=== PATIENT | male | born 1965 | race Caucasian/White ===

== ENCOUNTER 2019-11-23 13:43 | Inpatient (IN) | payer BC, OTHER ==
[2019-11-23 13:51] VITALS: BMI 34.2
--- NOTE | 2019-11-23 14:25 | PDOC ---
History of Present Illness - General Chief Complaint: Shortness of Breath Stated Complaint: SENT BY PCP/SOB Time Seen by Provider: 11/23/19 14:07 History Source: Patient Exam Limitations: No Limitations - History of Present Illness Initial Comments: HPI: 54 y/o male presenting to [facility] ER complaining of bilateral lower extremity swelling x10 days with worsening SOB and general malaise x4 days. Reports orthopnea and paroxysmal nocturnal dyspnea. Pt has no history of similar symptoms. Denies chest pain, fevers, chills, or productive cough. Denies any known medical problems, but has not been evaluated by a physician in several years. Initially presented to [facility] today, who referred the pt to the ED for further evaluation. 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 Denies prescription medications. Surgical Hx: - Appendectomy Review of Systems: In addition to that documented in the HPI above, the additional ROS was obtained : Constitutional- Denies fevers or chills Head- Denies vision changes ENMT- Denies sore throat CV- Denies chest pain Resp- Per HPI GI- Denies abdominal pain, vomiting or diarrhea - Denies painful urination MSK- Denies recent trauma Skin- Denies new rashes Neuro- Denies new numbness or tingling Endocrine- Denies polyuria Heme- Denies bleeding or bruising Physical Examination: Vital signs and nursing notes reviewed. Constitutional- Well-developed, well-nourished adult male in no acute distress or obvious discomfort. Found sitting upright on edge of hospital bed. Answered all questions appropriately and completely. Head- Normocephalic. No obvious external signs of trauma. Neck- Supple, trachea is midline. No JVD. Cardiovascular / Chest- Tachycardia w/ irregularly irregular rate and rhythm. No murmur, rubs, clicks, or gallops. Peripheral pulses- radial pulses full. 4+ pretibial edema to knee bilaterally. Respiratory- Breathing unlabored. Speaking in multi-word responses without pausing for breath. Equal chest rise and fall. Fine rales in bilateral bases, worse in right. No stridor, no wheezing, no rhonchi. Gastrointestinal- abdomen is soft, non-tender, non-distended. Post surgical scar to RLQ. Neuro- Alert and oriented x4. Moving all four extremities spontaneously. No facial asymmetry. No slurred speech. Skin- Warm, dry, and intact. Psych- Affect- appropriate. Mood- normal. Speech was non-labored, non- pressured. MDM: 54 y/o male presenting with 10 days of worsening pretibial edema, orthopnea, and exertional dyspnea. No cardiac history. Afebrile. Vitals remarkable for tachycardia without hypotension. Normoxic on room air. Physical exam as described above. EKG revealed rapid a-fib with RVR. Ordered diltiazem push with subsequent improvement in HR. CXR revealed trace effusion with enlarged cardiac silhouette. POCUS Echo revealed an estimated EF of 30-40%. Troponin not elevated. Suspect possible cardiomegaly. Will admit the pt for further cardiac workup. 23 Nov 2019 17:23 PM Telephone discussion with Dr. Montez. Verbally appraised of the pts HPI, ED course, and current plan of management. Requested the pt receive Carvidalol, Lasix, and Apixaban. Can use PRN Lopressor as needed for rate control. In person discussion with Dr. Garrett. Verbally appraised of the pts HPI, ED course, and current plan of management. Will admit the pt to telemetry. Kali Payton M.D., PGY2 Emergency Medicine Resident Past History - Past Medical History Allergies/Adverse Reactions: Allergies Allergy/AdvReac Type Severity Reaction Status Date / Time No Known Allergies Allergy Verified 11/23/19 13:51 COPD: No - Surgical History Abdominal Surgery: Yes - Psycho Social/Smoking Cessation Hx Smoking History: Current every day smoker Number of Cigarettes Smoked Daily: 20 Information on smoking cessation initiated: No *Physical Exam - Vital Signs Last Vital Signs Temp Pulse Resp BP Pulse Ox 98 F 74 18 136/92 98 11/23/19 13:49 11/23/19 13:49 11/23/19 13:49 11/23/19 13:49 11/23/19 13:49 Vital Signs - Vital Signs #1 Time: 14:24 Blood Pressure: 130/100 BP Location: Right Arm Blood Pressure Position: Sitting Pulse Rate: 120 Respiratory Rate: 24 O2 Sat by Pulse Oximetry (%): 96 Oxygen Delivery Method: Room Air ED Treatment Course - LABORATORY CBC & Chemistry Diagram: 11/23/19 14:44 11/23/19 14:44 - RADIOLOGY Radiology Studies Ordered: Category Date Time Status CHEST PA & LAT [RAD] Stat Radiology 11/23/19 14:21 Ordered Discharge - Discharge Information Problems reviewed: Yes Clinical Impression/Diagnosis: SOB (shortness of breath), New onset of congestive heart failure, Elevated brain natriuretic peptide (BNP) level, Orthopnea Edema Qualifiers: Edema type: localized Qualified Code(s): R60.0 - Localized edema Condition: Stable - Admission Yes - Follow up/Referral - Patient Discharge Instructions - Post Discharge Activity
[2019-11-23 15:10] LABS: BASO % 0.9 % (0-2.0); EOS % 1.4 % (0-4.5); HEMATOCRIT 48.2 % (35.4-49); HEMOGLOBIN 16.4 GM/dL (11.7-16.9); MCH 33.9 pg (25.7-33.7); MCHC 33.9 g/dl (32.0-35.9); MEAN CELL VOLUME 99.8 fl (80-96); MEAN PLT VOLUME 8.6 fl (7.5-11.1); MONO % 7.1 % (3.8-10.2); NEUT % 71.6 % (42.8-82.8); PLATELET COUNT 197 K/MM3 (134-434); RBC 4.83 M/mm3 (4.00-5.60); RDW 14.1 % (11.9-15.9); WHITE BLOOD COUNT 7.2 K/mm3 (4.0-10.0)
[2019-11-23 15:25] LABS: INR 1.28 (0.83-1.09); PROTHROMBIN TIME (PATIENT) 15.2 SEC (9.7-13.0)
[2019-11-23 15:28] LABS: ACTIVATED PTT 35.7 SECONDS (25.2-36.5)
--- NOTE | 2019-11-23 15:38 | PDOC ---
Documentation entered by Angela Ruiz SCRIBE, acting as scribe for Edna Phillips MD. Edna Phillips MD: This documentation has been prepared by the Sara trivedi Adrianna, SCRIBE, under my direction and personally reviewed by me in its entirety. I confirm that the documentation accurately reflects all work, treatment, procedures, and medical decision making performed by me. Attending Attestation - Resident Resident Name: Kali Payton - ED Attending Attestation I have performed the following: I have examined & evaluated the patient, The case was reviewed & discussed with the resident, I agree w/resident's findings & plan, Exceptions are as noted - HPI HPI: The patient is a 54 year old male, with no significant PMH, who presents to the ED for evaluation of SOB and bilateral lower extremity edema for 10 days. Patient complains of progressively worsening SOB, with dyspnea on exertion, orthopnea, and bilateral LE edema. He additionally complains of malaise for the past 4 days. Patient was seen at Urgent Care earlier today, and was advised to come to the ED for further evaluation. Allergies: NKA, NKDA Surgical History: Appendectomy Social History: Daily EtOH consumption. Daily tobacco use. Denies illicit drug use PCP: None - Physicial Exam PE: 11/23/19 15:22 GENERAL: The patient is in no acute distress. ENT: Ears normal, nares patent, oropharynx clear without exudates. Moist mucous membranes. NECK: Normal range of motion, supple, (+) JVD LUNGS: Breath sounds equal, clear to auscultation bilaterally. No wheezes, and no crackles. HEART: Irregularly irregular, S1 and S2 without murmur, rub or gallop. ABDOMEN: Soft, nontender, normoactive bowel sounds. EXTREMITIES: 3+ pitting edema NEUROLOGICAL: Cranial nerves II through XII grossly intact. Normal speech. No focal neurological deficits. SKIN: Warm, Dry, normal turgor, no rashes or lesions noted. - Medical Decision Making 11/23/19 15:22 54-year-old male with no significant past medical history because he does not follow-up with a primary care physician presenting to the emergency department with progressively worsening shortness of breath, dyspnea on exertion, orthopnea. Differential diagnosis includes but is not limited to: Congestive heart failure secondary to new onset A. fib, ACS, hyperthyroidism, new renal failure/fluid overloading We will do: Labs, EKG chest x-ray Anticipate admission EKG reveals: Atrial fibrillation, rate of 121 bpm, axis is normal, intervals are normal, no ST elevation or depression 11/23/19 15:38 Laboratory Tests 11/23/19 11/23/19 14:44 14:44 WBC 7.2 Hgb 16.4 Hct 48.2 Plt Count 197 INR 1.28 H 11/23/19 17:33 Laboratory Tests 11/23/19 11/23/19 11/23/19 14:44 14:44 14:44 WBC 7.2 Hgb 16.4 Hct 48.2 Plt Count 197 BUN 10.3 Creatinine 0.8 Troponin I 0.04 B-Natriuretic Peptide TSH 4.46 H Thyroxine (T4) 11.3 11/23/19 14:44 WBC Hgb Hct Plt Count BUN Creatinine Troponin I B-Natriuretic Peptide 7611.8 H TSH Thyroxine (T4) Lasix and rate control Admit to Dr Garrett Consult to Dr Trejo ED Treatment Course - LABORATORY CBC & Chemistry Diagram: 11/23/19 14:44 11/23/19 14:44 - ADDITIONAL ORDERS Additional order review: Laboratory Results 11/23/19 11/23/19 11/23/19 14:44 14:44 14:44 PT with INR 15.20 H INR 1.28 H PTT (Actin FS) 35.7 Sodium 132 L Potassium 4.2 Chloride 99 Carbon Dioxide 23 Anion Gap 11 BUN 10.3 Creatinine 0.8 Est GFR (CKD-EPI)AfAm 117.38 Est GFR (CKD-EPI)NonAf 101.27 Random Glucose 87 Calcium 9.4 Phosphorus 3.5 Magnesium 2.1 Total Bilirubin 2.8 H AST 69 H ALT 57 Alkaline Phosphatase 68 Creatine Kinase Troponin I B-Natriuretic Peptide 7611.8 H Total Protein 7.6 Albumin 3.7 TSH 4.46 H Thyroxine (T4) 11.3 11/23/19 14:44 PT with INR INR PTT (Actin FS) Sodium Potassium Chloride Carbon Dioxide Anion Gap BUN Creatinine Est GFR (CKD-EPI)AfAm Est GFR (CKD-EPI)NonAf Random Glucose Calcium Phosphorus Magnesium Total Bilirubin AST ALT Alkaline Phosphatase Creatine Kinase 61 Troponin I 0.04 B-Natriuretic Peptide Total Protein Albumin TSH Thyroxine (T4) 11/23/19 14:44 RBC 4.83 MCV 99.8 H MCHC 33.9 RDW 14.1 MPV 8.6 Neutrophils % 71.6 Lymphocytes % 19.0 Monocytes % 7.1 Eosinophils % 1.4 Basophils % 0.9 - RADIOLOGY Radiograph Interpretation: EXAM#: TYPE/EXAM: RESULT: [id number] RAD/CHEST PA LAT Chest: Shortness of breath. 2 views of the chest reveal a large heart, unfolded aorta and congestive changes. There may be some atelectasis at the right base. The bones and soft tissues are intact. Reported By: Albin Sabillon MD 11/23/19 16:04
[2019-11-23 15:53] LABS: MAGNESIUM 2.1 mg/dL (1.8-2.4); N-TERMINAL BNP 7611.8 pg/ml (5-125); PHOSPHOROUS 3.5 mg/dL (2.5-4.9)
[2019-11-23 15:57] LABS: ALBUMIN 3.7 g/dl (3.4-5.0); BILIRUBIN,TOTAL 2.8 mg/dL (0.2-1); BLOOD UREA NITROGEN 10.3 mg/dL (7-18); CALCIUM 9.4 mg/dL (8.5-10.1); CREATININE 0.8 mg/dL (0.55-1.3); POTASSIUM 4.2 mmol/L (3.5-5.1); TOT PROT 7.6 g/dl (6.4-8.2)
[2019-11-23] MEDS ORDERED: dilTIAZem HCL 50 MG/10 ML - 10 ML VIAL IVPUSH ONE (16:34)
[2019-11-23] MEDS ORDERED: dilTIAZem HCL 125 MG/25 ML - 25 ML VIAL ONE (16:49)
[2019-11-23] MEDS ORDERED: CARVEDILOL 12.5 MG TABLET (FP) PO ONE (17:22)
[2019-11-23] MEDS ORDERED: FUROSEMIDE 40 MG/4 ML INJECTABLE VIAL IVPUSH ONE (17:22)
[2019-11-23] MEDS ORDERED: APIXABAN 5 MG TABLET PO ONE (17:22)
--- NOTE | 2019-11-23 17:22 | HP ---
Admitting History and Physical - Primary Care Physician PCP: Arik Garrett - Admission History of Present Illness: 54 y/o male presenting to [facility] ER complaining of bilateral lower extremity swelling x10 days with worsening SOB and general malaise x4 days. Reports orthopnea and paroxysmal nocturnal dyspnea. Pt has no history of similar symptoms. Denies chest pain, fevers, chills, or productive cough. Denies any known medical problems, but has not been evaluated by a physician in several years. Initially presented to [facility] today, who referred the pt to the ED - Smoking History Smoking history: Current every day smoker Aproximately how many cigarettes per day: 20 Home Medications - Allergies Allergies/Adverse Reactions: Allergies Allergy/AdvReac Type Severity Reaction Status Date / Time No Known Allergies Allergy Verified 11/23/19 13:51 Review of Systems - Review of Systems Cardiovascular: reports: Palpitations, Shortness of Breath Physical Examination Vital Signs: Vital Signs Temperature 98 F 11/23/19 13:49 Pulse Rate 120 H 11/23/19 16:29 Respiratory Rate 24 H 11/23/19 16:29 Blood Pressure 130/100 11/23/19 16:29 O2 Sat by Pulse Oximetry (%) 96 11/23/19 16:29 Constitutional: Yes: No Distress HENT: Yes: Atraumatic Neck: Yes: Supple Cardiovascular: Yes: Regular Rate and Rhythm Respiratory: Yes: Rhonchi Gastrointestinal: Yes: Normal Bowel Sounds Extremities: Yes: WNL Edema: Yes Edema: LLE: 2+, RLE: 2+ Neurological: Yes: Alert, Oriented Labs: CBC, BMP 11/23/19 14:44 11/23/19 14:44 Problem List - Problems (1) Atrial fibrillation with rapid ventricular response Assessment/Plan: cardo consult monitor on tele on po meds Code(s): I48.91 - UNSPECIFIED ATRIAL FIBRILLATION (2) Edema Assessment/Plan: on diuretics Code(s): R60.9 - EDEMA, UNSPECIFIED Qualifiers: Edema type: unspecified Qualified Code(s): R60.9 - Edema, unspecified (3) Elevated brain natriuretic peptide (BNP) level Code(s): R79.89 - OTHER SPECIFIED ABNORMAL FINDINGS OF BLOOD CHEMISTRY (4) New onset of congestive heart failure Code(s): I50.9 - HEART FAILURE, UNSPECIFIED (5) Orthopnea Code(s): R06.01 - ORTHOPNEA (6) SOB (shortness of breath) Code(s): R06.02 - SHORTNESS OF BREATH Assessment/Plan Laboratory Tests 11/23/19 11/23/19 11/23/19 14:44 14:44 14:44 WBC 7.2 RBC 4.83 Hgb 16.4 Hct 48.2 MCV 99.8 H MCH 33.9 H MCHC 33.9 RDW 14.1 Plt Count 197 MPV 8.6 Absolute Neuts (auto) 5.2 Neutrophils % 71.6 Lymphocytes % 19.0 Monocytes % 7.1 Eosinophils % 1.4 Basophils % 0.9 Nucleated RBC % 0 PT with INR INR PTT (Actin FS) Sodium 132 L Potassium 4.2 Chloride 99 Carbon Dioxide 23 Anion Gap 11 BUN 10.3 Creatinine 0.8 Est GFR (CKD-EPI)AfAm 117.38 Est GFR (CKD-EPI)NonAf 101.27 Random Glucose 87 Calcium 9.4 Phosphorus Magnesium Total Bilirubin 2.8 H AST 69 H ALT 57 Alkaline Phosphatase 68 Creatine Kinase 61 Troponin I 0.04 B-Natriuretic Peptide Total Protein 7.6 Albumin 3.7 TSH 4.46 H Thyroxine (T4) 11.3 Blood Type Antibody Screen 11/23/19 11/23/19 11/23/19 14:44 14:44 14:44 WBC RBC Hgb Hct MCV MCH MCHC RDW Plt Count MPV Absolute Neuts (auto) Neutrophils % Lymphocytes % Monocytes % Eosinophils % Basophils % Nucleated RBC % PT with INR 15.20 H INR 1.28 H PTT (Actin FS) 35.7 Sodium Potassium Chloride Carbon Dioxide Anion Gap BUN Creatinine Est GFR (CKD-EPI)AfAm Est GFR (CKD-EPI)NonAf Random Glucose Calcium Phosphorus 3.5 Magnesium 2.1 Total Bilirubin AST ALT Alkaline Phosphatase Creatine Kinase Troponin I B-Natriuretic Peptide 7611.8 H Total Protein Albumin TSH Thyroxine (T4) Blood Type A POSITIVE Antibody Screen Negative Active Medications Generic Name Dose Route Start Last Admin Trade Name Freq PRN Reason Stop Dose Admin Acetaminophen 650 mg 11/23/19 17:23 Tylenol - PO Q6H PRN FEVER Apixaban 5 mg 11/23/19 22:00 11/24/19 09:58 Eliquis - PO 5 mg BID CLOTILDE Administration Carvedilol 12.5 mg 11/24/19 14:30 11/24/19 17:29 Coreg - PO 6.25 mg BID CLOTILDE Administration Furosemide 40 mg 11/24/19 06:00 11/24/19 13:44 Lasix Injection - IVPUSH 40 mg BID@0600,1400 CLOTILDE Administration Metoprolol Tartrate 5 mg 11/23/19 18:40 Lopressor Injection - IVPUSH Q4H PRN TACHYCARDIA Sacubitril/Valsartan 1 tab 11/24/19 14:30 11/24/19 17:30 Entresto 24 Mg-26 Mg Tablet PO 1 tab BID CLOTILDE Administration
[2019-11-23] MEDS ORDERED: ACETAMINOPHEN 325 MG TABLET (FP) PO PRN (17:23)
[2019-11-23] MEDS ORDERED: CARVEDILOL 12.5 MG TABLET (FP) ONE (17:37)
[2019-11-23] MEDS ORDERED: FUROSEMIDE 40 MG/4 ML INJECTABLE VIAL ONE (17:37)
[2019-11-23] MEDS ORDERED: APIXABAN 5 MG TABLET ONE (17:37)
[2019-11-23] MEDS ORDERED: METOPROLOL TARTRATE 5 MG/5 ML VIAL IVPUSH PRN (18:40)
--- NOTE | 2019-11-23 19:04 | CON.CARD ---
Consult Consult Specialty:: Cardiology Referred by:: Arik Garrett MD Reason for Consultation:: Newly diagnosed CHF - History of Present Illness Chief Complaint: Dyspnea, LE edema History of Present Illness: 54 y/o male presented complaining of bilateral lower extremity swelling with worsening SOB, orthopnea, PND and general malaise over last week. Patient denies associated chest pain, palpitations, near or true syncope. Initially presented to [facility] today, who referred the pt to the ED for further evaluation. He admits to sodium intake, denies NSAID use. POCUS shows moderate decreased LVEF 35-40% with dilated IVC. 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 - History Source History Provided By: Patient Limitations to Obtaining History: No Limitations - Smoking History Smoking history: Current every day smoker Aproximately how many cigarettes per day: 20 Home Medications - Allergies Allergies/Adverse Reactions: Allergies Allergy/AdvReac Type Severity Reaction Status Date / Time No Known Allergies Allergy Verified 11/23/19 13:51 Review of Systems - Review of Systems Cardiovascular: reports: Edema, Shortness of Breath Respiratory: reports: Exercise Intolerance, Orthopnea, PND, SOB, SOB on Exertion Vital Signs: Vital Signs Temperature 98 F 11/23/19 13:49 Pulse Rate 120 H 11/23/19 18:14 Respiratory Rate 24 H 11/23/19 18:14 Blood Pressure 130/100 11/23/19 18:14 O2 Sat by Pulse Oximetry (%) 96 11/23/19 18:14 Constitutional: Yes: No Distress, Calm Neck: Yes: Supple Respiratory: Yes: Regular, Diminished Gastrointestinal: Yes: Normal Bowel Sounds, Soft Cardiovascular: Yes: Pulse Irregular JVD: Yes Carotid Bruit: No Heart Sounds: Yes: S1, S2 Murmur: Yes: Systolic Murmur, Grade 1 Edema: Yes Edema: LLE: 2+, RLE: 2+ - Other Data Labs, Other Data: CBC, BMP 11/23/19 14:44 11/23/19 14:44 INR, PTT INR 1.28 (0.83-1.09) H 11/23/19 14:44 Troponin, BNP 11/23/19 11/23/19 14:44 14:44 Troponin I 0.04 B-Natriuretic Peptide 7611.8 H Troponin, BNP 11/23/19 11/23/19 14:44 14:44 Troponin I 0.04 B-Natriuretic Peptide 7611.8 H Rapid afib @ 121 nonspec T changes Ejection Fraction %: LVEF < 40 % Imaging - Results Chest X-ray: Report Reviewed (CHF) Problem List - Problems (1) Atrial fibrillation with rapid ventricular response Code(s): I48.91 - UNSPECIFIED ATRIAL FIBRILLATION (2) Edema Code(s): R60.9 - EDEMA, UNSPECIFIED Qualifiers: Edema type: unspecified Qualified Code(s): R60.9 - Edema, unspecified (3) Elevated brain natriuretic peptide (BNP) level Code(s): R79.89 - OTHER SPECIFIED ABNORMAL FINDINGS OF BLOOD CHEMISTRY (4) New onset of congestive heart failure Code(s): I50.9 - HEART FAILURE, UNSPECIFIED (5) Orthopnea Code(s): R06.01 - ORTHOPNEA (6) SOB (shortness of breath) Code(s): R06.02 - SHORTNESS OF BREATH Assessment/Plan 1. Acute systolic/diastolic heart failure 2. Newly diagnosed rapid afib 3. Hypervolemic hyponatremia P:1. IV diuresis with monitor diuretic response, renal fxn and electrolytes 2. Start carvedilol 6.25 bid, losartan 25 qd, Eliquis 5 bid with uptitration as hemodynamics tolerate, IV Lopressor as needed for rate-control 3. F/u echocardiogram results 4. Thank you for consultative opportunity, further recommendations to follow
[2019-11-23] MEDS: CARVEDILOL 6.25 MG TABLET (FP) PO SCH (21:37)
[2019-11-23] MEDS: APIXABAN 5 MG TABLET PO SCH (21:37)
[2019-11-23] MEDS ORDERED: HEPARIN NA (PORCINE) 5,000 UNITS/ML 1ML VIAL SQ SCH (22:00)
[2019-11-24] MEDS: FUROSEMIDE 40 MG/4 ML INJECTABLE VIAL IVPUSH SCH ×2 (06:09→13:44)
[2019-11-24 07:16] LABS: BLOOD UREA NITROGEN 13.5 mg/dL (7-18); CALCIUM 8.8 mg/dL (8.5-10.1); CREATININE 0.8 mg/dL (0.55-1.3); POTASSIUM 3.9 mmol/L (3.5-5.1)
[2019-11-24] MEDS: APIXABAN 5 MG TABLET PO SCH ×2 (09:58→21:47)
[2019-11-24] MEDS: CARVEDILOL 6.25 MG TABLET (FP) PO SCH ×3 (09:58→21:44)
[2019-11-24] MEDS ORDERED: LOSARTAN POTASSIUM 25 MG TABLET PO SCH ×2 (10:00→13:26)
--- NOTE | 2019-11-24 10:18 | PN ---
Progress Note, Physician History of Present Illness: Bilateral lower extremity swelling and heaviness, SOB, orthopnea, PND improving with IV diuresis. - Current Medication List Current Medications: Active Medications Acetaminophen (Tylenol -) 650 mg PO Q6H PRN PRN Reason: FEVER Apixaban (Eliquis -) 5 mg PO BID [facility] Last Admin: 11/24/19 09:58 Dose: 5 mg Carvedilol (Coreg -) 6.25 mg PO BID [facility] Last Admin: 11/24/19 09:58 Dose: 6.25 mg Furosemide (Lasix Injection -) 40 mg IVPUSH BID@0600,1400 [facility] Last Admin: 11/24/19 06:09 Dose: 40 mg Losartan Potassium (Cozaar -) 25 mg PO DAILY [facility] Last Admin: 11/24/19 09:58 Dose: 25 mg Metoprolol Tartrate (Lopressor Injection -) 5 mg IVPUSH Q4H PRN PRN Reason: TACHYCARDIA - Objective Vital Signs: Vital Signs Temperature 98.8 F 11/24/19 06:00 Pulse Rate 90 11/24/19 06:00 Respiratory Rate 18 11/24/19 06:00 Blood Pressure 115/77 11/24/19 06:00 O2 Sat by Pulse Oximetry (%) 98 11/23/19 20:00 Constitutional: Yes: No Distress, Calm Neck: Yes: Supple Cardiovascular: Yes: Pulse Irregular Respiratory: Yes: Regular, Diminished, On Nasal O2 Gastrointestinal: Yes: Normal Bowel Sounds, Soft, Abdomen, Obese Edema: Yes Edema: LLE: 2+, RLE: 2+ Labs: CBC, BMP 11/23/19 14:44 11/24/19 05:40 INR, PTT INR 1.28 (0.83-1.09) H 11/23/19 14:44 - ....Imaging EKG: Report Reviewed (Tele: Afib) Problem List - Problems (1) Atrial fibrillation with rapid ventricular response Code(s): I48.91 - UNSPECIFIED ATRIAL FIBRILLATION (2) Edema Code(s): R60.9 - EDEMA, UNSPECIFIED Qualifiers: Edema type: unspecified Qualified Code(s): R60.9 - Edema, unspecified (3) Elevated brain natriuretic peptide (BNP) level Code(s): R79.89 - OTHER SPECIFIED ABNORMAL FINDINGS OF BLOOD CHEMISTRY (4) New onset of congestive heart failure Code(s): I50.9 - HEART FAILURE, UNSPECIFIED (5) Orthopnea Code(s): R06.01 - ORTHOPNEA (6) SOB (shortness of breath) Code(s): R06.02 - SHORTNESS OF BREATH Assessment/Plan 1. Acute systolic/diastolic heart failure 2. Newly diagnosed rapid afib 3. Hypervolemic hyponatremia improving P:1. IV diuresis with monitor diuretic response, renal fxn and electrolytes 2. Continue carvedilol 6.25 bid, increase losartan 50 qd, Eliquis 5 bid with uptitration as hemodynamics tolerate, IV Lopressor as needed for rate-control 3. F/u echocardiogram results, wrap legs
--- NOTE | 2019-11-24 11:55 | EKG ---
Test Reason : Blood Pressure : / mmHG Vent. Rate : 121 BPM Atrial Rate : 094 BPM P-R Int : 000 ms QRS Dur : 092 ms QT Int : 350 ms P-R-T Axes : 000 -13 138 degrees QTc Int : 497 ms ATRIAL FIBRILLATION WITH RAPID VENTRICULAR RESPONSE T WAVE ABNORMALITY, CONSIDER LATERAL ISCHEMIA ABNORMAL ECG NO PREVIOUS ECGS AVAILABLE Confirmed by ELIO FREITAS MD ([id number]) on 11/24/2019 11:55:25 AM Referred By: Confirmed By:ELIO FREITAS MD
--- NOTE | 2019-11-24 13:23 | ECHO ---
Name: ENEDINA WINN Exam:Adult Echocardiogram Study Date: 11/24/2019 09:15 AM Age: 54 yrs Height: 75 in Weight: 274 lb BSA: 2.5 m2 MMode/2D Measurements & Calculations IVSd: 1.3 cm Ao root diam: 3.8 cm LVIDd: 5.8 cm LA dimension: 4.3 cm LVIDs: 4.8 cm LVPWd: 1.3 cm EDV(Teich): 168.2 ml LVOT diam: 2.0 cm ESV(Teich): 110.0 ml LAV (MOD-bp): 109.0 ml Doppler Measurements & Calculations MV E max carter: 95.3 cm/sec Ao V2 max: 172.4 cm/sec MV A max carter: 38.0 cm/sec Ao max P.9 mmHg MV E/A: 2.5 MV dec time: 0.16 sec ADEN(V,D): 1.9 cm2 LV V1 max P.9 mmHg MR max carter: 387.8 cm/sec LV V1 max: 98.7 cm/sec MR max P.4 mmHg TR max carter: 214.0 cm/sec PA V2 max: 89.6 cm/sec TR max P.5 mmHg PA max P.2 mmHg Med Peak E' Carter: 4.4 cm/sec Med E/e': 21.7 Lat Peak E' Caretr: 8.5 cm/sec Lat E/e': 11.2 Procedure A complete two-dimensional transthoracic echocardiogram was performed (2D, M-mode, Doppler and color flow Doppler). Left Ventricle The left ventricle is mildly dilated. Left ventricular systolic function is severely reduced. Ejectio n Fraction = 25-30%. There is severe global hypokinesis of the left ventricle. Right Ventricle The right ventricle is moderately dilated. The right ventricular systolic function is moderately redu riddhi. Atria The left atrium is moderately dilated. The right atrium is moderately dilated. Mitral Valve There is mild mitral regurgitation. Tricuspid Valve There is trace tricuspid regurgitation. There was insufficient TR detected to calculate RV systolic p ressure. Aortic Valve No hemodynamically significant valvular aortic stenosis. No aortic regurgitation is present. Pulmonic Valve There is no pulmonic valvular regurgitation. Great Vessels Mild aortic root dilatation. Pericardium/Pleura There is no pericardial effusion. Interpretation Summary The left ventricle is mildly dilated. Left ventricular systolic function is severely reduced. There is severe global hypokinesis of the left ventricle. The right ventricle is moderately dilated. The right ventricular systolic function is moderately reduced. The left atrium is moderately dilated. The right atrium is moderately dilated. There is mild mitral regurgitation. There is trace tricuspid regurgitation. Mild aortic root dilatation. MD Pan Coronel 11/24/2019 01:23 PM
[2019-11-24] MEDS: SACUBITRIL/VALSARTAN 24 MG-26 MG TABLET PO SCH ×2 (17:30→23:19)
--- NOTE | 2019-11-24 18:41 | PN ---
Progress Note, Physician - Current Medication List Current Medications: Active Medications Acetaminophen (Tylenol -) 650 mg PO Q6H PRN PRN Reason: FEVER Apixaban (Eliquis -) 5 mg PO BID [facility] Last Admin: 11/24/19 09:58 Dose: 5 mg Carvedilol (Coreg -) 12.5 mg PO BID [facility] Last Admin: 11/24/19 17:29 Dose: 6.25 mg Furosemide (Lasix Injection -) 40 mg IVPUSH BID@0600,1400 [facility] Last Admin: 11/24/19 13:44 Dose: 40 mg Metoprolol Tartrate (Lopressor Injection -) 5 mg IVPUSH Q4H PRN PRN Reason: TACHYCARDIA Sacubitril/Valsartan (Entresto 24 Mg-26 Mg Tablet) 1 tab PO BID [facility] Last Admin: 11/24/19 17:30 Dose: 1 tab - Objective Vital Signs: Vital Signs Temperature 98.3 F 11/24/19 18:00 Pulse Rate 101 H 11/24/19 18:00 Respiratory Rate 18 11/24/19 18:00 Blood Pressure 117/67 11/24/19 18:00 O2 Sat by Pulse Oximetry (%) 98 11/24/19 10:00 Constitutional: Yes: No Distress HENT: Yes: Atraumatic Neck: Yes: Supple Cardiovascular: Yes: Regular Rate and Rhythm Respiratory: Yes: CTA Bilaterally Gastrointestinal: Yes: Normal Bowel Sounds Extremities: Yes: WNL Edema: No Neurological: Yes: Alert, Oriented Labs: CBC, BMP 11/23/19 14:44 11/24/19 05:40 INR, PTT INR 1.28 (0.83-1.09) H 11/23/19 14:44 Problem List - Problems (1) Atrial fibrillation with rapid ventricular response Assessment/Plan: cardio consult monitor on tele on po meds Code(s): I48.91 - UNSPECIFIED ATRIAL FIBRILLATION (2) Edema Assessment/Plan: on diuretics Code(s): R60.9 - EDEMA, UNSPECIFIED Qualifiers: Edema type: unspecified Qualified Code(s): R60.9 - Edema, unspecified (3) Elevated brain natriuretic peptide (BNP) level Code(s): R79.89 - OTHER SPECIFIED ABNORMAL FINDINGS OF BLOOD CHEMISTRY (4) New onset of congestive heart failure Assessment/Plan: on diuretics Code(s): I50.9 - HEART FAILURE, UNSPECIFIED (5) Orthopnea Code(s): R06.01 - ORTHOPNEA (6) SOB (shortness of breath) Code(s): R06.02 - SHORTNESS OF BREATH
[2019-11-25] MEDS: FUROSEMIDE 40 MG/4 ML INJECTABLE VIAL IVPUSH SCH ×2 (05:47→13:52)
[2019-11-25] MEDS ORDERED: PT OWN MED DRAWER 7, Y5N ONE ×2 (09:38→21:24)
[2019-11-25] MEDS: APIXABAN 5 MG TABLET PO SCH ×2 (09:46→21:25)
[2019-11-25] MEDS: SACUBITRIL/VALSARTAN 24 MG-26 MG TABLET PO SCH ×2 (09:46→21:26)
[2019-11-25] MEDS: CARVEDILOL 6.25 MG TABLET (FP) PO SCH ×2 (09:46→21:25)
--- NOTE | 2019-11-25 10:39 | PN ---
Progress Note, Physician History of Present Illness: Bilateral lower extremity swelling and heaviness, SOB, orthopnea, PND improving with IV diuresis. - Current Medication List Current Medications: Active Medications Acetaminophen (Tylenol -) 650 mg PO Q6H PRN PRN Reason: FEVER Apixaban (Eliquis -) 5 mg PO BID [facility] Last Admin: 11/25/19 09:46 Dose: 5 mg Carvedilol (Coreg -) 12.5 mg PO BID [facility] Last Admin: 11/25/19 09:46 Dose: 12.5 mg Furosemide (Lasix Injection -) 40 mg IVPUSH BID@0600,1400 [facility] Last Admin: 11/25/19 05:47 Dose: 40 mg Metoprolol Tartrate (Lopressor Injection -) 5 mg IVPUSH Q4H PRN PRN Reason: TACHYCARDIA Sacubitril/Valsartan (Entresto 24 Mg-26 Mg Tablet) 1 tab PO BID [facility] Last Admin: 11/25/19 09:46 Dose: 1 tab - Objective Vital Signs: Vital Signs Temperature 98.3 F 11/25/19 09:00 Pulse Rate 106 H 11/25/19 09:51 Respiratory Rate 11/25/19 09:51 Blood Pressure 125/68 11/25/19 09:51 O2 Sat by Pulse Oximetry (%) 99 11/24/19 21:00 Constitutional: Yes: No Distress, Calm Neck: Yes: Supple Cardiovascular: Yes: Pulse Irregular Respiratory: Yes: Regular, Diminished Gastrointestinal: Yes: Normal Bowel Sounds, Soft Edema: Yes Edema: LLE: 1+, RLE: 1+ Labs: CBC, BMP 11/23/19 14:44 11/24/19 05:40 INR, PTT INR 1.28 (0.83-1.09) H 11/23/19 14:44 - ....Imaging EKG: Report Reviewed (Tele: Afib) Problem List - Problems (1) Atrial fibrillation with rapid ventricular response Code(s): I48.91 - UNSPECIFIED ATRIAL FIBRILLATION (2) Edema Code(s): R60.9 - EDEMA, UNSPECIFIED Qualifiers: Edema type: unspecified Qualified Code(s): R60.9 - Edema, unspecified (3) Elevated brain natriuretic peptide (BNP) level Code(s): R79.89 - OTHER SPECIFIED ABNORMAL FINDINGS OF BLOOD CHEMISTRY (4) New onset of congestive heart failure Code(s): I50.9 - HEART FAILURE, UNSPECIFIED (5) Orthopnea Code(s): R06.01 - ORTHOPNEA (6) SOB (shortness of breath) Code(s): R06.02 - SHORTNESS OF BREATH (7) Acute systolic congestive heart failure Code(s): I50.21 - ACUTE SYSTOLIC (CONGESTIVE) HEART FAILURE Assessment/Plan 11/24/2019 Mildly dilated LV with severely decreased LVEF 25-30%, mod dilated RV with mod decreased LV fxn, mod MIKHAIL, mildMR, tr TR, mild ao dilatation 3.8 cm 1. Acute systolic/diastolic heart failure resolving 2. Newly diagnosed rapid afib 3. Hypervolemic hyponatremia improving P:1. IV diuresis with monitor diuretic response, renal fxn and electrolytes 2. Continue carvedilol 12.5 bid, Entresto 24/26 bid, Eliquis 5 bid, eplerenone 25 qd with uptitration as hemodynamics tolerate, IV Lopressor as needed for rate -control 3. Wrap legs, Lifevest fitting prior to d/c, outpatient R&LHc once euvolemic to assess etiology cardiomyopathy
--- NOTE | 2019-11-25 12:15 | PN ---
Progress Note, Physician - Current Medication List Current Medications: Active Medications Acetaminophen (Tylenol -) 650 mg PO Q6H PRN PRN Reason: FEVER Apixaban (Eliquis -) 5 mg PO BID [facility] Last Admin: 11/25/19 09:46 Dose: 5 mg Carvedilol (Coreg -) 12.5 mg PO BID [facility] Last Admin: 11/25/19 09:46 Dose: 12.5 mg Eplerenone (Eplerenone) 25 mg PO DAILY [facility] Furosemide (Lasix Injection -) 40 mg IVPUSH BID@0600,1400 [facility] Last Admin: 11/25/19 05:47 Dose: 40 mg Metoprolol Tartrate (Lopressor Injection -) 5 mg IVPUSH Q4H PRN PRN Reason: TACHYCARDIA Sacubitril/Valsartan (Entresto 24 Mg-26 Mg Tablet) 1 tab PO BID [facility] Last Admin: 11/25/19 09:46 Dose: 1 tab - Objective Vital Signs: Vital Signs Temperature 98.3 F 11/25/19 09:00 Pulse Rate 97 H 11/25/19 10:00 Respiratory Rate 11/25/19 09:51 Blood Pressure 125/68 11/25/19 09:51 O2 Sat by Pulse Oximetry (%) 96 11/25/19 10:00 Constitutional: Yes: No Distress HENT: Yes: Atraumatic Neck: Yes: Supple Cardiovascular: Yes: Regular Rate and Rhythm Respiratory: Yes: CTA Bilaterally Gastrointestinal: Yes: Normal Bowel Sounds Extremities: Yes: WNL Edema: Yes Edema: LLE: 2+, RLE: 2+ Neurological: Yes: Alert, Oriented Labs: CBC, BMP 11/23/19 14:44 11/24/19 05:40 INR, PTT INR 1.28 (0.83-1.09) H 11/23/19 14:44 Problem List - Problems (1) Atrial fibrillation with rapid ventricular response Assessment/Plan: cardio consult monitor on tele on po meds Code(s): I48.91 - UNSPECIFIED ATRIAL FIBRILLATION (2) Edema Assessment/Plan: on diuretics Code(s): R60.9 - EDEMA, UNSPECIFIED Qualifiers: Edema type: unspecified Qualified Code(s): R60.9 - Edema, unspecified (3) Elevated brain natriuretic peptide (BNP) level Code(s): R79.89 - OTHER SPECIFIED ABNORMAL FINDINGS OF BLOOD CHEMISTRY (4) New onset of congestive heart failure Assessment/Plan: on diuretics Code(s): I50.9 - HEART FAILURE, UNSPECIFIED (5) Orthopnea Code(s): R06.01 - ORTHOPNEA (6) SOB (shortness of breath) Code(s): R06.02 - SHORTNESS OF BREATH
[2019-11-25] MEDS: EPLERENONE 25 MG TABLET PO SCH (12:20)
[2019-11-26] MEDS: FUROSEMIDE 40 MG/4 ML INJECTABLE VIAL IVPUSH SCH ×2 (06:42→13:23)
[2019-11-26 08:16] LABS: BLOOD UREA NITROGEN 12.6 mg/dL (7-18); CALCIUM 8.9 mg/dL (8.5-10.1); CREATININE 0.8 mg/dL (0.55-1.3); POTASSIUM 3.6 mmol/L (3.5-5.1)
[2019-11-26] MEDS ORDERED: PT OWN MED DRAWER 7, Y5N ONE (09:38)
[2019-11-26] MEDS: CARVEDILOL 6.25 MG TABLET (FP) PO SCH ×2 (09:45→22:39)
[2019-11-26] MEDS: SACUBITRIL/VALSARTAN 24 MG-26 MG TABLET PO SCH ×2 (09:45→22:39)
[2019-11-26] MEDS: EPLERENONE 25 MG TABLET PO SCH (09:45)
[2019-11-26] MEDS: APIXABAN 5 MG TABLET PO SCH ×2 (09:45→22:39)
--- NOTE | 2019-11-26 09:57 | PN ---
Progress Note, Physician Chief Complaint: Pt A&Ox3; feels much better (no SOB; legs are much less swollen). History of Present Illness: 54 y/o white man presented complaining of bilateral lower extremity swelling with worsening SOB, orthopnea, PND and general malaise over last week. Patient denies associated chest pain, palpitations, near or true syncope. Initially presented to [facility] today, who referred the pt to the ED for further evaluation. He admits to sodium intake, denies NSAID use. POCUS shows moderate decreased LVEF 35-40% with dilated IVC. 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 - Current Medication List Current Medications: Active Medications Acetaminophen (Tylenol -) 650 mg PO Q6H PRN PRN Reason: FEVER Apixaban (Eliquis -) 5 mg PO BID [facility] Last Admin: 11/26/19 09:45 Dose: 5 mg Carvedilol (Coreg -) 12.5 mg PO BID [facility] Last Admin: 11/26/19 09:45 Dose: 12.5 mg Eplerenone (Eplerenone) 25 mg PO DAILY [facility] Last Admin: 11/26/19 09:45 Dose: 25 mg Furosemide (Lasix Injection -) 40 mg IVPUSH BID@0600,1400 [facility] Last Admin: 11/26/19 06:42 Dose: 40 mg Metoprolol Tartrate (Lopressor Injection -) 5 mg IVPUSH Q4H PRN PRN Reason: TACHYCARDIA Sacubitril/Valsartan (Entresto 24 Mg-26 Mg Tablet) 1 tab PO BID [facility] Last Admin: 11/26/19 09:45 Dose: 1 tab - Objective Vital Signs: Vital Signs Temperature 97.8 F 11/26/19 02:02 Pulse Rate 92 H 11/26/19 05:32 Respiratory Rate 20 11/26/19 05:32 Blood Pressure 123/63 11/26/19 05:32 O2 Sat by Pulse Oximetry (%) 99 11/25/19 19:45 Constitutional: Yes: Anxious, Obese Eyes: Yes: WNL HENT: Yes: WNL Neck: Yes: WNL Cardiovascular: Yes: Pulse Irregular Respiratory: Yes: Regular Gastrointestinal: Yes: Soft, Abdomen, Obese ...Rectal Exam: Yes: Deferred Genitourinary: Yes: WNL Breast(s): Yes: WNL Musculoskeletal: Yes: WNL Extremities: Yes: Cool Edema: Yes Edema: LLE: 1+, RLE: 1+ Peripheral Pulses WNL: Yes Integumentary: Yes: Erythema (mild bilateral LEs) Neurological: Yes: WNL Psychiatric: Yes: Alert, Oriented, Other (anxiety) Labs: CBC, BMP 11/23/19 14:44 11/26/19 06:33 INR, PTT INR 1.28 (0.83-1.09) H 11/23/19 14:44 - ....Imaging Chest X-ray: Image Reviewed (congestive changes) EKG: Image Reviewed (AF with RVR) Problem List - Problems (1) Obese Assessment/Plan: Pt has lost a considerable amount of weight, saying "I just don't have a great appetite". The importance of adopting a heart-healthy diet was discussed in detail. Code(s): E66.9 - OBESITY, UNSPECIFIED (2) Alcoholism Code(s): F10.20 - ALCOHOL DEPENDENCE, UNCOMPLICATED (3) Acute systolic congestive heart failure Assessment/Plan: On carvedilol, epleronone, Entresto; plan to optimize doses over the next weeks. On furosemide 40 mg IVP bid; plan to gradually reduce dose and change to PO if still needed on discharge. F/u electrolytes (Mg level pending). F/u BUN/Cr, Is and Os, daily weight, Awaits Life Vest prior to discharge. Code(s): I50.21 - ACUTE SYSTOLIC (CONGESTIVE) HEART FAILURE (4) Atrial fibrillation with rapid ventricular response Assessment/Plan: On carvedilol for HR, CHF. On apixaban for anticoagulation. Code(s): I48.91 - UNSPECIFIED ATRIAL FIBRILLATION (5) Edema Code(s): R60.9 - EDEMA, UNSPECIFIED Qualifiers: Edema type: unspecified Qualified Code(s): R60.9 - Edema, unspecified (6) Anxiety Assessment/Plan: Pt is anxious regarding "new" health problems (he admits he has, until now, paid little attention to his health), recent unemployment, with stress searching for new job. The importance of learning to handle emotional stress was discussed. Code(s): F41.9 - ANXIETY DISORDER, UNSPECIFIED (7) Sedentary lifestyle Assessment/Plan: Pt plans to start walking regularly and slowlly incresae duration. Code(s): Z91.89 - OTH PERSONAL RISK FACTORS, NOT ELSEWHERE CLASSIFIED
--- NOTE | 2019-11-26 13:31 | PN ---
Progress Note, Physician - Current Medication List Current Medications: Active Medications Acetaminophen (Tylenol -) 650 mg PO Q6H PRN PRN Reason: FEVER Apixaban (Eliquis -) 5 mg PO BID [facility] Last Admin: 11/26/19 09:45 Dose: 5 mg Carvedilol (Coreg -) 12.5 mg PO BID [facility] Last Admin: 11/26/19 09:45 Dose: 12.5 mg Eplerenone (Eplerenone) 25 mg PO DAILY [facility] Last Admin: 11/26/19 09:45 Dose: 25 mg Furosemide (Lasix Injection -) 40 mg IVPUSH BID@0600,1400 [facility] Last Admin: 11/26/19 13:23 Dose: 40 mg Metoprolol Tartrate (Lopressor Injection -) 5 mg IVPUSH Q4H PRN PRN Reason: TACHYCARDIA Sacubitril/Valsartan (Entresto 24 Mg-26 Mg Tablet) 1 tab PO BID [facility] Last Admin: 11/26/19 09:45 Dose: 1 tab - Objective Vital Signs: Vital Signs Temperature 97.5 F L 11/26/19 11:00 Pulse Rate 95 H 11/26/19 11:49 Respiratory Rate 20 11/26/19 11:00 Blood Pressure 145/70 11/26/19 11:00 O2 Sat by Pulse Oximetry (%) 96 11/26/19 11:49 Constitutional: Yes: No Distress HENT: Yes: Atraumatic Neck: Yes: Supple Cardiovascular: Yes: Regular Rate and Rhythm Respiratory: Yes: CTA Bilaterally Gastrointestinal: Yes: Normal Bowel Sounds Extremities: Yes: WNL Neurological: Yes: Alert, Oriented Labs: CBC, BMP 11/23/19 14:44 11/26/19 06:33 INR, PTT INR 1.28 (0.83-1.09) H 11/23/19 14:44 Problem List - Problems (1) Atrial fibrillation with rapid ventricular response Assessment/Plan: cardio consult monitor on tele on po meds Code(s): I48.91 - UNSPECIFIED ATRIAL FIBRILLATION (2) Edema Assessment/Plan: on diuretics Code(s): R60.9 - EDEMA, UNSPECIFIED Qualifiers: Edema type: unspecified Qualified Code(s): R60.9 - Edema, unspecified (3) Elevated brain natriuretic peptide (BNP) level Code(s): R79.89 - OTHER SPECIFIED ABNORMAL FINDINGS OF BLOOD CHEMISTRY (4) New onset of congestive heart failure Assessment/Plan: on diuretics Code(s): I50.9 - HEART FAILURE, UNSPECIFIED (5) Orthopnea Code(s): R06.01 - ORTHOPNEA (6) SOB (shortness of breath) Code(s): R06.02 - SHORTNESS OF BREATH (7) Acute systolic congestive heart failure Assessment/Plan: on iv diuretics and other meds Code(s): I50.21 - ACUTE SYSTOLIC (CONGESTIVE) HEART FAILURE
[2019-11-27] MEDS ORDERED: BENZOCAINE 20 % GEL TUBE MM PRN (04:01)
[2019-11-27] MEDS ORDERED: BENZOCAINE 10 % GEL TUBE MM PRN (04:17)
[2019-11-27] MEDS: FUROSEMIDE 40 MG/4 ML INJECTABLE VIAL IVPUSH SCH ×2 (06:31→14:30)
[2019-11-27] MEDS ORDERED: PT OWN MED DRAWER 7, Y5N ONE ×2 (09:52→19:55)
[2019-11-27] MEDS: APIXABAN 5 MG TABLET PO SCH ×2 (09:55→22:17)
[2019-11-27] MEDS: SACUBITRIL/VALSARTAN 24 MG-26 MG TABLET PO SCH ×2 (09:55→22:17)
[2019-11-27] MEDS: EPLERENONE 25 MG TABLET PO SCH (09:55)
[2019-11-27] MEDS: CARVEDILOL 6.25 MG TABLET (FP) PO SCH ×2 (09:55→22:16)
--- NOTE | 2019-11-27 18:22 | PN ---
Progress Note, Physician - Current Medication List Current Medications: Active Medications Acetaminophen (Tylenol -) 650 mg PO Q6H PRN PRN Reason: FEVER Apixaban (Eliquis -) 5 mg PO BID [facility] Last Admin: 11/27/19 09:55 Dose: 5 mg Benzocaine (Orajel) 1 applic MM Q6H PRN PRN Reason: FOR TOOTHACHE Last Admin: 11/27/19 04:38 Dose: 1 applic Carvedilol (Coreg -) 12.5 mg PO BID [facility] Last Admin: 11/27/19 09:55 Dose: 12.5 mg Eplerenone (Eplerenone) 25 mg PO DAILY [facility] Last Admin: 11/27/19 09:55 Dose: 25 mg Furosemide (Lasix Injection -) 40 mg IVPUSH BID@0600,1400 [facility] Last Admin: 11/27/19 14:30 Dose: Not Given Metoprolol Tartrate (Lopressor Injection -) 5 mg IVPUSH Q4H PRN PRN Reason: TACHYCARDIA Sacubitril/Valsartan (Entresto 24 Mg-26 Mg Tablet) 1 tab PO BID [facility] Last Admin: 11/27/19 09:55 Dose: 1 tab - Objective Vital Signs: Vital Signs Temperature 97.4 F L 11/27/19 18:00 Pulse Rate 82 11/27/19 18:00 Respiratory Rate 20 11/27/19 18:00 Blood Pressure 87/58 L 11/27/19 18:00 O2 Sat by Pulse Oximetry (%) 98 11/27/19 14:00 Constitutional: Yes: No Distress HENT: Yes: Atraumatic Neck: Yes: Supple Cardiovascular: Yes: Regular Rate and Rhythm Respiratory: Yes: CTA Bilaterally Gastrointestinal: Yes: Normal Bowel Sounds Extremities: Yes: WNL Edema: Yes Edema: LLE: 2+, RLE: 2+ Peripheral Pulses WNL: Yes Neurological: Yes: Alert, Oriented Labs: CBC, BMP 11/23/19 14:44 11/26/19 06:33 INR, PTT INR 1.28 (0.83-1.09) H 11/23/19 14:44 Problem List - Problems (1) Atrial fibrillation with rapid ventricular response Assessment/Plan: cardio consult monitor on tele on po meds Code(s): I48.91 - UNSPECIFIED ATRIAL FIBRILLATION (2) Edema Assessment/Plan: on diuretics Code(s): R60.9 - EDEMA, UNSPECIFIED Qualifiers: Edema type: unspecified Qualified Code(s): R60.9 - Edema, unspecified (3) Elevated brain natriuretic peptide (BNP) level Code(s): R79.89 - OTHER SPECIFIED ABNORMAL FINDINGS OF BLOOD CHEMISTRY (4) New onset of congestive heart failure Assessment/Plan: on diuretics Code(s): I50.9 - HEART FAILURE, UNSPECIFIED (5) Orthopnea Code(s): R06.01 - ORTHOPNEA (6) SOB (shortness of breath) Code(s): R06.02 - SHORTNESS OF BREATH (7) Acute systolic congestive heart failure Assessment/Plan: on iv diuretics and other meds Code(s): I50.21 - ACUTE SYSTOLIC (CONGESTIVE) HEART FAILURE
[2019-11-28] MEDS: FUROSEMIDE 40 MG/4 ML INJECTABLE VIAL IVPUSH SCH ×2 (05:52→15:50)
--- NOTE | 2019-11-28 06:47 | PN ---
Progress Note, Physician Chief Complaint: Pt A&Ox3; felt SOB overnight when he lowered head of bed to being relatively flat (keeps foot of bed elevated due to leg swelling, which has improved); sitting up now, and without dyspnea. Asks what he should eat for breakfast for good health. History of Present Illness: 54 y/o white man presented complaining of bilateral lower extremity swelling with worsening SOB, orthopnea, PND and general malaise over last week. Patient denies associated chest pain, palpitations, near or true syncope. Initially presented to [facility] today, who referred the pt to the ED for further evaluation. He admits to sodium intake, denies NSAID use. POCUS shows moderate decreased LVEF 35-40% with dilated IVC. 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 - Current Medication List Current Medications: Active Medications Acetaminophen (Tylenol -) 650 mg PO Q6H PRN PRN Reason: FEVER Apixaban (Eliquis -) 5 mg PO BID [facility] Last Admin: 11/27/19 22:17 Dose: 5 mg Benzocaine (Orajel) 1 applic MM Q6H PRN PRN Reason: FOR TOOTHACHE Last Admin: 11/27/19 04:38 Dose: 1 applic Carvedilol (Coreg -) 12.5 mg PO BID [facility] Last Admin: 11/27/19 22:16 Dose: 12.5 mg Eplerenone (Eplerenone) 25 mg PO DAILY [facility] Last Admin: 11/27/19 09:55 Dose: 25 mg Furosemide (Lasix Injection -) 40 mg IVPUSH BID@0600,1400 [facility] Last Admin: 11/28/19 05:52 Dose: Not Given Metoprolol Tartrate (Lopressor Injection -) 5 mg IVPUSH Q4H PRN PRN Reason: TACHYCARDIA Sacubitril/Valsartan (Entresto 24 Mg-26 Mg Tablet) 1 tab PO BID [facility] Last Admin: 11/27/19 22:17 Dose: 1 tab - Objective Vital Signs: Vital Signs Temperature 97.5 F L 11/28/19 06:00 Pulse Rate 83 11/28/19 06:00 Respiratory Rate 18 11/28/19 06:00 Blood Pressure 100/56 L 11/28/19 06:00 O2 Sat by Pulse Oximetry (%) 96 11/27/19 21:00 Constitutional: Yes: Anxious, Obese Eyes: Yes: WNL HENT: Yes: WNL Neck: Yes: WNL Cardiovascular: Yes: S1 (varies in intensity), S2 Respiratory: Yes: Regular Gastrointestinal: Yes: Soft ...Rectal Exam: Yes: Deferred Genitourinary: Yes: WNL Breast(s): Yes: WNL Musculoskeletal: Yes: WNL Extremities: Yes: Erythema (mild) Edema: Yes Edema: LLE: Trace, RLE: Trace Peripheral Pulses WNL: Yes Integumentary: Yes: WNL Neurological: Yes: WNL Psychiatric: Yes: Alert, Oriented Labs: CBC, BMP 11/23/19 14:44 11/26/19 06:33 INR, PTT INR 1.28 (0.83-1.09) H 11/23/19 14:44 - ....Imaging Chest X-ray: Image Reviewed EKG: Image Reviewed Other: Image Reviewed (telemetry: AF; periods of RVR) Problem List - Problems (1) Obese Assessment/Plan: Pt has lost a considerable amount of weight, saying "I just don't have a great appetite". The importance of adopting a heart-healthy diet was discussed in detail. Code(s): E66.9 - OBESITY, UNSPECIFIED (2) Alcoholism Code(s): F10.20 - ALCOHOL DEPENDENCE, UNCOMPLICATED (3) Acute systolic congestive heart failure Assessment/Plan: On carvedilol, epleronone, Entresto; plan to optimize doses over the next weeks. On furosemide 40 mg IVP bid; plan to gradually reduce dose and change to PO if still needed on discharge. F/u electrolytes (Mg now WNL). F/u BUN/Cr, Is and Os, daily weight, F/u repeat CXR. Awaits Life Vest prior to discharge. Code(s): I50.21 - ACUTE SYSTOLIC (CONGESTIVE) HEART FAILURE (4) Atrial fibrillation with rapid ventricular response Assessment/Plan: On carvedilol for HR, CHF. On apixaban for anticoagulation. For repeat EKG. Code(s): I48.91 - UNSPECIFIED ATRIAL FIBRILLATION (5) Edema Code(s): R60.9 - EDEMA, UNSPECIFIED Qualifiers: Edema type: unspecified Qualified Code(s): R60.9 - Edema, unspecified (6) Anxiety Assessment/Plan: Pt is anxious regarding "new" health problems (he admits he has, until now, paid little attention to his health), recent unemployment, with stress searching for new job. The importance of learning to handle emotional stress was discussed. Code(s): F41.9 - ANXIETY DISORDER, UNSPECIFIED (7) Sedentary lifestyle Assessment/Plan: Pt plans to start walking regularly and slowly increase duration. Code(s): Z91.89 - OTH PERSONAL RISK FACTORS, NOT ELSEWHERE CLASSIFIED
[2019-11-28] MEDS ORDERED: PT OWN MED DRAWER 7, Y5N ONE ×2 (09:12→21:26)
[2019-11-28] MEDS: APIXABAN 5 MG TABLET PO SCH ×2 (09:43→22:04)
--- NOTE | 2019-11-28 09:54 | EKG ---
Test Reason : Blood Pressure : / mmHG Vent. Rate : 073 BPM Atrial Rate : 340 BPM P-R Int : 000 ms QRS Dur : 104 ms QT Int : 442 ms P-R-T Axes : 000 -16 162 degrees QTc Int : 486 ms ATRIAL FIBRILLATION MINIMAL VOLTAGE CRITERIA FOR LVH, MAY BE NORMAL VARIANT T WAVE ABNORMALITY, CONSIDER ANTEROLATERAL ISCHEMIA PROLONGED QT ABNORMAL ECG WHEN COMPARED WITH ECG OF 23-NOV-2019 13:48, VENT. RATE HAS DECREASED BY 48 BPM T WAVE VARIATION Confirmed by NELSON ROSSI MD ([id number]) on 11/28/2019 9:53:47 AM Referred By: Mable HDZ Confirmed By:NELSON ROSSI MD
[2019-11-28] MEDS: SACUBITRIL/VALSARTAN 24 MG-26 MG TABLET PO SCH ×2 (10:00→22:04)
[2019-11-28] MEDS: CARVEDILOL 6.25 MG TABLET (FP) PO SCH ×2 (10:00→22:04)
--- NOTE | 2019-11-28 10:11 | PN ---
Progress Note, Physician History of Present Illness: Had restless night with recurrent orthopnea and PND, bilateral lower extremity swelling and heaviness is improving with diuresis. Significant weight loss with diuresis. - Current Medication List Current Medications: Active Medications Acetaminophen (Tylenol -) 650 mg PO Q6H PRN PRN Reason: FEVER Apixaban (Eliquis -) 5 mg PO BID [facility] Last Admin: 11/28/19 09:43 Dose: 5 mg Benzocaine (Orajel) 1 applic MM Q6H PRN PRN Reason: FOR TOOTHACHE Last Admin: 11/27/19 04:38 Dose: 1 applic Carvedilol (Coreg -) 12.5 mg PO BID [facility] Last Admin: 11/27/19 22:16 Dose: 12.5 mg Eplerenone (Eplerenone) 25 mg PO DAILY [facility] Last Admin: 11/27/19 09:55 Dose: 25 mg Furosemide (Lasix Injection -) 40 mg IVPUSH BID@0600,1400 [facility] Last Admin: 11/28/19 05:52 Dose: Not Given Metoprolol Tartrate (Lopressor Injection -) 5 mg IVPUSH Q4H PRN PRN Reason: TACHYCARDIA Sacubitril/Valsartan (Entresto 24 Mg-26 Mg Tablet) 1 tab PO BID [facility] Last Admin: 11/27/19 22:17 Dose: 1 tab - Objective Vital Signs: Vital Signs Temperature 97.4 F L 11/28/19 10:00 Pulse Rate 82 11/28/19 10:00 Respiratory Rate 22 H 11/28/19 10:00 Blood Pressure 96/56 L 11/28/19 10:00 O2 Sat by Pulse Oximetry (%) 96 11/27/19 21:00 Constitutional: Yes: No Distress, Calm Neck: Yes: Supple Cardiovascular: Yes: Pulse Irregular Respiratory: Yes: Regular, Diminished, On Nasal O2 Gastrointestinal: Yes: Normal Bowel Sounds, Soft Edema: Yes Edema: LLE: Trace, RLE: Trace Labs: CBC, BMP 11/23/19 14:44 11/26/19 06:33 INR, PTT INR 1.28 (0.83-1.09) H 11/23/19 14:44 - ....Imaging EKG: Report Reviewed (Afib @ 73 min criteria LVH QTc 486 msec Tele: Rate- controlled afib) Problem List - Problems (1) Atrial fibrillation with rapid ventricular response Code(s): I48.91 - UNSPECIFIED ATRIAL FIBRILLATION (2) Edema Code(s): R60.9 - EDEMA, UNSPECIFIED Qualifiers: Edema type: unspecified Qualified Code(s): R60.9 - Edema, unspecified (3) Elevated brain natriuretic peptide (BNP) level Code(s): R79.89 - OTHER SPECIFIED ABNORMAL FINDINGS OF BLOOD CHEMISTRY (4) New onset of congestive heart failure Code(s): I50.9 - HEART FAILURE, UNSPECIFIED (5) Orthopnea Code(s): R06.01 - ORTHOPNEA (6) SOB (shortness of breath) Code(s): R06.02 - SHORTNESS OF BREATH (7) Acute systolic congestive heart failure Code(s): I50.21 - ACUTE SYSTOLIC (CONGESTIVE) HEART FAILURE Assessment/Plan 11/24/2019 Mildly dilated LV with severely decreased LVEF 25-30%, mod dilated RV with mod decreased LV fxn, mod MIKHAIL, mildMR, tr TR, mild ao dilatation 3.8 cm 1. Acute systolic/diastolic heart failure resolving 2. Newly diagnosed rapid afib with improved rate-control 3. Hypervolemic hyponatremia improving 4. R/o sleep-disordered breathing, central sleep apnea P:1. IV diuresis with monitor diuretic response, renal fxn and electrolytes 2. Continue carvedilol 12.5 bid, Entresto 24/26 bid, Eliquis 5 bid, eplerenone 25 qd with uptitration as hemodynamics tolerate, IV Lopressor as needed for rate -control 3. Wrap legs, Lifevest fitting prior to d/c, outpatient R&LHc once euvolemic to assess etiology cardiomyopathy 4. Recheck CXR, sleep study as outpatient for sleep disordered breathing
[2019-11-28] MEDS: EPLERENONE 25 MG TABLET PO SCH (10:38)
--- NOTE | 2019-11-28 16:52 | PN ---
Progress Note, Physician - Current Medication List Current Medications: Active Medications Acetaminophen (Tylenol -) 650 mg PO Q6H PRN PRN Reason: FEVER Apixaban (Eliquis -) 5 mg PO BID [facility] Last Admin: 11/28/19 09:43 Dose: 5 mg Benzocaine (Orajel) 1 applic MM Q6H PRN PRN Reason: FOR TOOTHACHE Last Admin: 11/27/19 04:38 Dose: 1 applic Carvedilol (Coreg -) 12.5 mg PO BID [facility] Last Admin: 11/27/19 22:16 Dose: 12.5 mg Eplerenone (Eplerenone) 25 mg PO DAILY [facility] Last Admin: 11/28/19 10:38 Dose: Not Given Furosemide (Lasix Injection -) 40 mg IVPUSH BID@0600,1400 [facility] Last Admin: 11/28/19 15:50 Dose: 40 mg Metoprolol Tartrate (Lopressor Injection -) 5 mg IVPUSH Q4H PRN PRN Reason: TACHYCARDIA Sacubitril/Valsartan (Entresto 24 Mg-26 Mg Tablet) 1 tab PO BID [facility] Last Admin: 11/27/19 22:17 Dose: 1 tab - Objective Vital Signs: Vital Signs Temperature 97.5 F L 11/28/19 14:40 Pulse Rate 88 11/28/19 14:40 Respiratory Rate 24 H 11/28/19 14:40 Blood Pressure 87/74 L 11/28/19 14:40 O2 Sat by Pulse Oximetry (%) 100 11/28/19 09:00 Constitutional: Yes: No Distress HENT: Yes: Atraumatic Neck: Yes: Supple Cardiovascular: Yes: Regular Rate and Rhythm Respiratory: Yes: CTA Bilaterally Gastrointestinal: Yes: Normal Bowel Sounds Extremities: Yes: WNL Edema: Yes Edema: LLE: 2+, RLE: 2+ Neurological: Yes: Alert, Oriented Labs: CBC, BMP 11/23/19 14:44 11/26/19 06:33 INR, PTT INR 1.28 (0.83-1.09) H 11/23/19 14:44 Problem List - Problems (1) Atrial fibrillation with rapid ventricular response Assessment/Plan: cardio consult monitor on tele on po meds Code(s): I48.91 - UNSPECIFIED ATRIAL FIBRILLATION (2) Edema Assessment/Plan: on diuretics Code(s): R60.9 - EDEMA, UNSPECIFIED Qualifiers: Edema type: unspecified Qualified Code(s): R60.9 - Edema, unspecified (3) Elevated brain natriuretic peptide (BNP) level Code(s): R79.89 - OTHER SPECIFIED ABNORMAL FINDINGS OF BLOOD CHEMISTRY (4) New onset of congestive heart failure Assessment/Plan: on diuretics Code(s): I50.9 - HEART FAILURE, UNSPECIFIED (5) Orthopnea Code(s): R06.01 - ORTHOPNEA (6) SOB (shortness of breath) Code(s): R06.02 - SHORTNESS OF BREATH (7) Acute systolic congestive heart failure Code(s): I50.21 - ACUTE SYSTOLIC (CONGESTIVE) HEART FAILURE
[2019-11-28] MEDS ORDERED: MELATONIN 5 MG TABLETS PO ONE (22:38)
[2019-11-29] MEDS: FUROSEMIDE 40 MG/4 ML INJECTABLE VIAL IVPUSH SCH (06:45)
[2019-11-29 07:15] LABS: BASO % 0.9 % (0-2.0); HEMATOCRIT 42.8 % (35.4-49); HEMOGLOBIN 14.5 GM/dL (11.7-16.9); LYMPH % 26.5 % (8-40); MCH 33.4 pg (25.7-33.7); MCHC 33.9 g/dl (32.0-35.9); MEAN CELL VOLUME 98.6 fl (80-96); MEAN PLT VOLUME 9.2 fl (7.5-11.1); MONO % 14.4 % (3.8-10.2); NEUT % 55.2 % (42.8-82.8); PLATELET COUNT 152 K/MM3 (134-434); RBC 4.34 M/mm3 (4.00-5.60); RDW 13.8 % (11.9-15.9); WHITE BLOOD COUNT 5.9 K/mm3 (4.0-10.0)
[2019-11-29 07:52] LABS: ALBUMIN 2.9 g/dl (3.4-5.0); BILIRUBIN,TOTAL 1.7 mg/dL (0.2-1); BLOOD UREA NITROGEN 15.5 mg/dL (7-18); CALCIUM 8.6 mg/dL (8.5-10.1); CREATININE 0.7 mg/dL (0.55-1.3); POTASSIUM 3.7 mmol/L (3.5-5.1)
[2019-11-29] MEDS ORDERED: PT OWN MED DRAWER 7, Y5N ONE (10:08)
[2019-11-29] MEDS: EPLERENONE 25 MG TABLET PO SCH (10:33)
[2019-11-29] MEDS: SACUBITRIL/VALSARTAN 24 MG-26 MG TABLET PO SCH (10:33)
[2019-11-29] MEDS: APIXABAN 5 MG TABLET PO SCH (10:33)
[2019-11-29] MEDS: CARVEDILOL 6.25 MG TABLET (FP) PO SCH (10:33)
--- NOTE | 2019-11-29 11:11 | PN ---
Progress Note, Physician Chief Complaint: Events noted Not in distress History of Present Illness: Patient was seen and examined. Awake and alert. Chart was reviewed Denies chest pain, SOB or palpitations - Current Medication List Current Medications: Active Medications Acetaminophen (Tylenol -) 650 mg PO Q6H PRN PRN Reason: FEVER Apixaban (Eliquis -) 5 mg PO BID [facility] Last Admin: 11/29/19 10:33 Dose: 5 mg Benzocaine (Orajel) 1 applic MM Q6H PRN PRN Reason: FOR TOOTHACHE Last Admin: 11/27/19 04:38 Dose: 1 applic Carvedilol (Coreg -) 12.5 mg PO BID [facility] Last Admin: 11/29/19 10:33 Dose: 12.5 mg Eplerenone (Eplerenone) 25 mg PO DAILY [facility] Last Admin: 11/29/19 10:33 Dose: 25 mg Furosemide (Lasix Injection -) 40 mg IVPUSH BID@0600,1400 [facility] Last Admin: 11/29/19 06:45 Dose: 40 mg Metoprolol Tartrate (Lopressor Injection -) 5 mg IVPUSH Q4H PRN PRN Reason: TACHYCARDIA Sacubitril/Valsartan (Entresto 24 Mg-26 Mg Tablet) 1 tab PO BID [facility] Last Admin: 11/29/19 10:33 Dose: 1 tab - Objective Vital Signs: Vital Signs Temperature 98 F 11/29/19 09:29 Pulse Rate 88 11/29/19 09:29 Respiratory Rate 18 11/29/19 09:29 Blood Pressure 89/64 L 11/29/19 09:29 O2 Sat by Pulse Oximetry (%) 100 11/28/19 09:00 Eyes: Yes: PERRL HENT: Yes: Atraumatic Neck: Yes: Supple Cardiovascular: Yes: Pulse Irregular, S1, S2 Respiratory: Yes: CTA Bilaterally Gastrointestinal: Yes: Normal Bowel Sounds, Soft. No: Tenderness Edema: Yes Edema: LLE: Trace, RLE: Trace Additional Findings/Remarks: - Review of Systems Constitutional: denies: Chills, Fever Cardiovascular: denies Chest Pain, Shortness of Breath. denies: Palpitations Respiratory: denies Cough, SOB, SOB on Exertion, Wheezing. denies: Orthopnea, PND Genitourinary: denies: Discharge, Hematuria Neurological: denies: Dizziness, Headache, Seizure, Syncope Labs: CBC, BMP 11/29/19 06:30 11/29/19 06:30 Problem List - Problems (1) Cardiomyopathy Code(s): I42.9 - CARDIOMYOPATHY, UNSPECIFIED (2) Acute systolic congestive heart failure Code(s): I50.21 - ACUTE SYSTOLIC (CONGESTIVE) HEART FAILURE (3) Atrial fibrillation with rapid ventricular response Code(s): I48.91 - UNSPECIFIED ATRIAL FIBRILLATION (4) Elevated brain natriuretic peptide (BNP) level Code(s): R79.89 - OTHER SPECIFIED ABNORMAL FINDINGS OF BLOOD CHEMISTRY (5) SOB (shortness of breath) Code(s): R06.02 - SHORTNESS OF BREATH Assessment/Plan 1. Acute systolic/diastolic heart failure resolving 2. Newly diagnosed rapid AF with improved rate-control 3. Hypervolemic hyponatremia improving 4. Rule out sleep-disordered breathing with central sleep apnea PLAN: 1. IV diuresis with monitor renal function and electrolytes. Consider switch to PO diuretics 2. Continue Carvedilol 12.5 mg BID, Entresto 24/26 mg BID, Eliquis 5 mg BID and Eplerenone 25 mg QD with uptitration as hemodynamics tolerate, IV Lopressor as needed for rate-control 3. Lifevest fitted. outpatient follow up in the office. Recheck LVEF in 90 days and if still low, ICD as primary prophylaxis 4. Schedule right and left cardiac catheterization as outpatient - he is scheduled for 11/30/19 2:30 pm at [facility]. He may be discharged home and cath as outpatient 5. Recheck CXR, sleep study as outpatient for sleep disordered breathing. Pulmonary evaluation pending Further plans are to follow Atilio Child MD
--- NOTE | 2019-11-29 13:04 | CON.PULM ---
Consult Consult Specialty:: PULM/CCM Referred by:: ALVRAO Reason for Consultation:: R/O OSAS - History of Present Illness Chief Complaint: SOB History of Present Illness: 54 M, former smoker x 3 months (no baseline PFTs). Admitted via the ER due to bilateral lower extremity swelling with associated SOB, orthopnea, PND and general malaise. Patient reports severe insomnia due to multiple nocturnal arousals due to SOB and gasping for air. This is exacerbated when he is in the supine position. His confirms loud, disruptive snoring and periods of witnessed apneas. He does experience Excessive Daytime Sleepiness (EDS). He has been experiencing occasional AM headaches. ECHO: EF 25 to 30%. 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 No: Asthma, Cancer, COPD, O2 Dependent, Pneumonia, Previously Intubated, Pulmonary Embolus, Pulmonary Fibrosis - Alcohol/Substance Use Hx Alcohol Use: Yes (2-3 DAILY) - Smoking History Smoking history: Current every day smoker Have you smoked in the past 12 months: Yes Aproximately how many cigarettes per day: 20 Home Medications - Allergies Allergies/Adverse Reactions: Allergies Allergy/AdvReac Type Severity Reaction Status Date / Time No Known Allergies Allergy Verified 11/23/19 13:51 Review of Systems - Review of Systems Constitutional: reports: Malaise. denies: Chills, Fever, Lethargy, Night Sweats Eyes: reports: No Symptoms HENT: reports: No Symptoms Neck: reports: No Symptoms Cardiovascular: reports: Edema, Shortness of Breath. denies: Chest Pain, Palpitations Respiratory: reports: Cough, Orthopnea, PND, Snoring, SOB, SOB on Exertion. denies: Hemoptysis, Wheezing Gastrointestinal: reports: No Symptoms Genitourinary: reports: No Symptoms Breasts: reports: No Symptoms Reported Musculoskeletal: reports: No Symptoms Integumentary: reports: No Symptoms Neurological: reports: No Symptoms Endocrine: reports: No Symptoms Hematology/Lymphatic: reports: No Symptoms Psychiatric: reports: No Symptoms Physical Exam Vital Sings: Vital Signs Temperature 98 F 11/29/19 09:29 Pulse Rate 88 11/29/19 09:29 Respiratory Rate 18 11/29/19 09:29 Blood Pressure 89/64 L 11/29/19 09:29 O2 Sat by Pulse Oximetry (%) 99 11/29/19 09:00 Constitutional: Yes: No Distress, Calm Eyes: Yes: Conjunctiva Clear, EOM Intact HENT: Yes: Atraumatic, Normocephalic Neck: Yes: Supple, Trachea Midline Cardiovascular: Yes: Pulse Irregular Respiratory: Yes: CTA Bilaterally. No: Accessory Muscle Use, Rales, Rhonchi, SOB, SOB on Exertion, Stridor, Tachypnea, Wheezes ...Inspection: Yes: WNL ...Clubbing: No Gastrointestinal: Yes: Normal Bowel Sounds, Soft Renal/: Yes: WNL Musculoskeletal: Yes: WNL Extremities: Yes: WNL Edema: Yes Peripheral Pulses WNL: Yes Integumentary: Yes: WNL Neurological: Yes: WNL, Alert, Oriented ...Motor Strength: WNL Psychiatric: Yes: WNL, Alert, Oriented Labs: CBC, BMP 11/29/19 06:30 11/29/19 06:30 Imaging - Results Chest X-ray: Report Reviewed, Image Reviewed Problem List - Problems (1) Sleep apnea Code(s): G47.30 - SLEEP APNEA, UNSPECIFIED (2) Acute systolic congestive heart failure Code(s): I50.21 - ACUTE SYSTOLIC (CONGESTIVE) HEART FAILURE (3) Atrial fibrillation with rapid ventricular response Code(s): I48.91 - UNSPECIFIED ATRIAL FIBRILLATION (4) Cardiomyopathy Code(s): I42.9 - CARDIOMYOPATHY, UNSPECIFIED (5) Edema Code(s): R60.9 - EDEMA, UNSPECIFIED Qualifiers: Edema type: unspecified Qualified Code(s): R60.9 - Edema, unspecified (6) Elevated brain natriuretic peptide (BNP) level Code(s): R79.89 - OTHER SPECIFIED ABNORMAL FINDINGS OF BLOOD CHEMISTRY (7) New onset of congestive heart failure Code(s): I50.9 - HEART FAILURE, UNSPECIFIED (8) Obese Code(s): E66.9 - OBESITY, UNSPECIFIED (9) Orthopnea Code(s): R06.01 - ORTHOPNEA (10) SOB (shortness of breath) Code(s): R06.02 - SHORTNESS OF BREATH Assessment/Plan Patient will need formal sleep testing: due to cardiomyopathy and low EF there is a concern for Central Sleep Apnea or Damian-Arreola Respirations. Testing will be to be an NPSG to rule in or rule out these diagnoses. No smoking Outpatient PFTs Cardiac meds per Cardiology Daily weights Patient for cardiac catheterization Will follow as an outpatient Thank you. Dr Cormier
--- NOTE | 2019-11-29 13:49 | DS ---
Physical Examination Vital Signs: Vital Signs Temperature 98 F 11/29/19 09:29 Pulse Rate 88 11/29/19 09:29 Respiratory Rate 18 11/29/19 09:29 Blood Pressure 89/64 L 11/29/19 09:29 O2 Sat by Pulse Oximetry (%) 99 11/29/19 09:00 Constitutional: Yes: No Distress HENT: Yes: Atraumatic Neck: Yes: Supple Cardiovascular: Yes: Regular Rate and Rhythm Respiratory: Yes: CTA Bilaterally Gastrointestinal: Yes: Normal Bowel Sounds Extremities: Yes: WNL Edema: LLE: 2+, RLE: 2+ Neurological: Yes: Alert, Oriented Labs: CBC, BMP 11/29/19 06:30 11/29/19 06:30 Discharge Summary Problems reviewed: Yes Reason For Visit: BNP LEVEL Current Active Problems Acute systolic congestive heart failure (Acute) Alcoholism (Acute) Anxiety (Acute) Atrial fibrillation with rapid ventricular response (Acute) Cardiomyopathy (Acute) Edema (Acute) Elevated brain natriuretic peptide (BNP) level (Acute) New onset of congestive heart failure (Acute) Obese (Acute) Orthopnea (Acute) SOB (shortness of breath) (Acute) Sedentary lifestyle (Acute) Sleep apnea (Acute) Condition: Stable - Instructions Referrals: ON STAFF,NOT [Primary Care Provider] - Arik Garrett MD [Staff Physician] - Everett Trejo MD [Staff Physician] - Rodney Cormier MD [Staff Physician] - Disposition: HOME - Home Medications Comprehensive Discharge Medication List: Ambulatory Orders Apixaban [Eliquis -] 5 mg PO BID #60 tablet 11/29/19 Carvedilol [Coreg -] 12.5 mg PO BID #90 tablet 11/29/19 Eplerenone 25 mg PO DAILY #30 tablet 11/29/19 Furosemide [Lasix -] 40 mg PO BID@0600,1400 #60 tablet 11/29/19 Sacubitril/Valsartan [Entresto 24 mg-26 mg Tablet] 1 tab PO BID #60 tablet 11/29
[2019-11-29] MEDS ORDERED: FUROSEMIDE 40 MG TABLET (FP) PO SCH (14:00)
[2019-11-29 14:15] VITALS: BP 92/60; PULSE 86; TEMP 97.8
== END 2019-11-29 14:51 | disposition home or self-care (01) | DRG 292 ==
LOC: JER 13:43 → JERBED 16:29 → J4W 18:18
PROVIDERS: ADMIT Internal Medicine; ATTEND Internal Medicine
DX: I50.21 Acute systolic (congestive) heart failure (principal); E87.1 Hypo-osmolality and hyponatremia; I42.9 Cardiomyopathy, unspecified; R79.89 Other specified abnormal findings of blood chemistry; R60.9 Edema, unspecified; R06.01 Orthopnea; I48.91 Unspecified atrial fibrillation; F17.210 Nicotine dependence, cigarettes, uncomplicated; E66.9 Obesity, unspecified; Z68.32 Body mass index [BMI] 32.0-32.9, adult; E86.1 Hypovolemia; F10.20 Alcohol dependence, uncomplicated; F41.9 Anxiety disorder, unspecified; R06.02 Shortness of breath; G47.30 Sleep apnea, unspecified; Z91.89 Other specified personal risk factors, not elsewhere classified
CPT/HCPCS: 36415; 71046-TC-FY; 80048; 80053; 80061; 82550; 83036; 83721; 83735; 83880; 84100; 84436; 84443; 84484; 85025; 85610; 85730; 86850; 86900; 86901; 93005; 93010; 93306-TC; 93308; 99282-25

== ENCOUNTER 2022-04-18 12:05 | Inpatient (IN) | payer BC, OTHER ==
[2022-04-18] MEDS ORDERED: SODIUM CHLORIDE 0.9% 500 ML INFUS.BAG IV ONE (12:31)
[2022-04-18 13:03] LABS: EOS % 3.7 % (0-4.5); HEMATOCRIT 41.4 % (35.4-49); HEMOGLOBIN 14.2 GM/dL (11.7-16.9); LYMPH % 26.6 % (8-40); MCH 33.7 pg (25.7-33.7); MCHC 34.3 g/dl (32.0-35.9); MEAN CELL VOLUME 98.1 fl (80-96); MEAN PLT VOLUME 8.6 fl (7.5-11.1); MONO % 11.5 % (3.8-10.2); NEUT % 57.2 % (42.8-82.8); PLATELET COUNT 272 10^3/uL (134-434); RBC 4.22 M/mm3 (4.00-5.60); RDW 13.6 % (11.9-15.9); WHITE BLOOD COUNT 7.2 K/mm3 (4.0-10.0)
[2022-04-18] MEDS ORDERED: LACTATED RINGERS SOLUTION 1000 ML INFUS.BAG IV ONE ×2 (13:03→15:18)
[2022-04-18 13:08] LABS: INR 1.34 (0.83-1.09); PROTHROMBIN TIME (PATIENT) 15.5 SEC (9.7-13.0)
[2022-04-18 13:11] LABS: ACTIVATED PTT 34.2 SECONDS (25.2-36.5)
[2022-04-18 13:22] LABS: CALCIUM 9.4 mg/dL (8.5-10.1)
[2022-04-18 13:23] LABS: ALBUMIN 3.4 g/dl (3.4-5.0); BLOOD UREA NITROGEN 13.7 mg/dL (7-18); MAGNESIUM 1.6 mg/dL (1.8-2.4)
[2022-04-18 13:26] LABS: CREATININE 0.9 mg/dL (0.55-1.3)
[2022-04-18 13:28] LABS: TOT PROT 6.7 g/dl (6.4-8.2)
[2022-04-18] MEDS ORDERED: MAGNESIUM 1GM/D5W - 1 GM/100 ML IVPB IVPB ONE (13:55)
[2022-04-18 15:41] LABS: URINE APPEARANCE CLEAR; URINE BILIRUBIN NEGATIVE (NEGATIVE); URINE COLOR YELLOW; URINE GLUCOSE (UA) NEGATIVE (NEGATIVE); URINE KETONE 1+ (NEGATIVE); URINE LEUK ESTERASE NEGATIVE (NEGATIVE); URINE NITRITE NEGATIVE (NEGATIVE); URINE PROTEIN NEGATIVE (NEGATIVE); URINE UROBILINOGEN 4.0 E.U/dl mg/dL (0.2-1.0)
[2022-04-18] MEDS ORDERED: SODIUM CHLORIDE 1,000 ML IV SCH (16:45)
[2022-04-18] MEDS ORDERED: CARVEDILOL 12.5 MG TABLET (FP) PO SCH (22:00)
[2022-04-18] MEDS ORDERED: SACUBITRIL/VALSARTAN 24 MG-26 MG TABLET PO SCH (22:00)
[2022-04-18] MEDS ORDERED: APIXABAN 5 MG TABLET ONE (22:45)
[2022-04-18] MEDS: APIXABAN 5 MG TABLET PO SCH (22:54)
[2022-04-18 23:46] VITALS: BMI 34.9
[2022-04-19 08:38] LABS: BASO % 0.7 % (0-2.0); EOS % 4.5 % (0-4.5); HEMATOCRIT 36.9 % (35.4-49); HEMOGLOBIN 12.9 GM/dL (11.7-16.9); LYMPH % 30.9 % (8-40); MCH 34.2 pg (25.7-33.7); MEAN CELL VOLUME 97.7 fl (80-96); MEAN PLT VOLUME 8.6 fl (7.5-11.1); MONO % 10.3 % (3.8-10.2); NEUT % 53.6 % (42.8-82.8); PLATELET COUNT 212 10^3/uL (134-434); RBC 3.77 M/mm3 (4.00-5.60); RDW 13.3 % (11.9-15.9)
[2022-04-19 09:00] LABS: CALCIUM 8.5 mg/dL (8.5-10.1)
[2022-04-19 09:01] LABS: ALBUMIN 2.8 g/dl (3.4-5.0); BLOOD UREA NITROGEN 11.5 mg/dL (7-18); MAGNESIUM 1.9 mg/dL (1.8-2.4)
[2022-04-19 09:04] LABS: CREATININE 0.7 mg/dL (0.55-1.3); PHOSPHOROUS 3.7 mg/dL (2.5-4.9)
[2022-04-19 09:05] LABS: TOT PROT 5.8 g/dl (6.4-8.2)
[2022-04-19] MEDS: APIXABAN 5 MG TABLET PO SCH ×2 (09:55→21:11)
[2022-04-19] MEDS: EPLERENONE 25 MG TABLET PO SCH ×2 (10:14→10:50)
[2022-04-19] MEDS ORDERED: REMDESIVIR 200 MG in SODIUM CHLORIDE 250 ML IVPB ONE (11:43)
[2022-04-19] MEDS ORDERED: SODIUM CHLORIDE 1,000 ML IV SCH (11:45)
[2022-04-19] MEDS ORDERED: CARVEDILOL 12.5 MG TABLET (FP) PO SCH (22:00)
[2022-04-19] MEDS ORDERED: SACUBITRIL/VALSARTAN 24 MG-26 MG TABLET PO SCH (22:00)
[2022-04-20 08:23] LABS: BASO % 0.8 % (0-2.0); EOS % 3.9 % (0-4.5); HEMATOCRIT 36.8 % (35.4-49); HEMOGLOBIN 12.9 GM/dL (11.7-16.9); LYMPH % 28.3 % (8-40); MCH 34.7 pg (25.7-33.7); MEAN CELL VOLUME 99.1 fl (80-96); MEAN PLT VOLUME 8.6 fl (7.5-11.1); MONO % 12.4 % (3.8-10.2); NEUT % 54.6 % (42.8-82.8); PLATELET COUNT 223 10^3/uL (134-434); RBC 3.71 M/mm3 (4.00-5.60); RDW 13.3 % (11.9-15.9); WHITE BLOOD COUNT 5.2 K/mm3 (4.0-10.0)
[2022-04-20 08:28] LABS: BLOOD UREA NITROGEN 6.6 mg/dL (7-18); CALCIUM 9.2 mg/dL (8.5-10.1)
[2022-04-20 08:31] LABS: CREATININE 0.8 mg/dL (0.55-1.3)
[2022-04-20 08:33] LABS: BILIRUBIN,TOTAL 0.9 mg/dL (0.2-1); TOT PROT 6.1 g/dl (6.4-8.2)
[2022-04-20] MEDS: APIXABAN 5 MG TABLET PO SCH ×2 (09:14→21:30)
[2022-04-20] MEDS: SACUBITRIL/VALSARTAN 24 MG-26 MG TABLET PO SCH ×2 (09:15→21:30)
[2022-04-20] MEDS: REMDESIVIR 100 MG in SODIUM CHLORIDE 250 ML IVPB SCH (15:50)
[2022-04-21 08:54] LABS: BASO % 0.8 % (0-2.0); EOS % 2.8 % (0-4.5); HEMATOCRIT 42.2 % (35.4-49); HEMOGLOBIN 14.6 GM/dL (11.7-16.9); LYMPH % 26.1 % (8-40); MCH 34.5 pg (25.7-33.7); MCHC 34.6 g/dl (32.0-35.9); MEAN CELL VOLUME 99.7 fl (80-96); MEAN PLT VOLUME 8.5 fl (7.5-11.1); MONO % 11.1 % (3.8-10.2); NEUT % 59.2 % (42.8-82.8); PLATELET COUNT 265 10^3/uL (134-434); RBC 4.23 M/mm3 (4.00-5.60); RDW 13.8 % (11.9-15.9)
[2022-04-21 09:12] LABS: ALBUMIN 3.6 g/dl (3.4-5.0); CALCIUM 9.4 mg/dL (8.5-10.1)
[2022-04-21 09:13] LABS: BLOOD UREA NITROGEN 4.3 mg/dL (7-18); MAGNESIUM 1.8 mg/dL (1.8-2.4)
[2022-04-21 09:16] LABS: CREATININE 0.9 mg/dL (0.55-1.3); TOT PROT 7.2 g/dl (6.4-8.2)
[2022-04-21] MEDS: CARVEDILOL 6.25 MG TABLET (FP) PO SCH ×2 (09:51→22:36)
[2022-04-21] MEDS: APIXABAN 5 MG TABLET PO SCH ×2 (09:51→22:36)
[2022-04-21] MEDS: SACUBITRIL/VALSARTAN 24 MG-26 MG TABLET PO SCH ×2 (09:51→22:36)
[2022-04-21] MEDS: REMDESIVIR 100 MG in SODIUM CHLORIDE 250 ML IVPB SCH (15:37)
[2022-04-21] MEDS ORDERED: diphenhydrAMINE HCL 25 MG CAPSULE (FP) PO ONE (22:42)
[2022-04-22] MEDS ORDERED: PROCHLORPERAZINE INJECTION 10 MG/2 ML VIAL IVPB ONE (02:25)
[2022-04-22] MEDS ORDERED: HYDROCORTISONE 1% TOPICAL CREAM 30 GM TUBE TP ONE (03:39)
[2022-04-22 06:55] LABS: BASO % 0.8 % (0-2.0); EOS % 5.9 % (0-4.5); HEMATOCRIT 36.3 % (35.4-49); HEMOGLOBIN 12.8 GM/dL (11.7-16.9); LYMPH % 32.5 % (8-40); MCH 34.5 pg (25.7-33.7); MCHC 35.2 g/dl (32.0-35.9); MEAN PLT VOLUME 8.2 fl (7.5-11.1); MONO % 12.2 % (3.8-10.2); NEUT % 48.6 % (42.8-82.8); PLATELET COUNT 190 10^3/uL (134-434); RDW 13.3 % (11.9-15.9)
[2022-04-22 07:18] LABS: BLOOD UREA NITROGEN 3.6 mg/dL (7-18); CALCIUM 8.7 mg/dL (8.5-10.1)
[2022-04-22 07:21] LABS: CREATININE 0.6 mg/dL (0.55-1.3)
[2022-04-22 07:23] LABS: BILIRUBIN,TOTAL 0.8 mg/dL (0.2-1); TOT PROT 5.5 g/dl (6.4-8.2)
[2022-04-22 07:27] LABS: ALBUMIN 2.7 g/dl (3.4-5.0)
[2022-04-22] MEDS: APIXABAN 5 MG TABLET PO SCH (10:43)
[2022-04-22] MEDS: CARVEDILOL 6.25 MG TABLET (FP) PO SCH (10:43)
[2022-04-22] MEDS: SACUBITRIL/VALSARTAN 24 MG-26 MG TABLET PO SCH (10:43)
[2022-04-22 11:41] VITALS: TEMP 97.6
[2022-04-22] MEDS: REMDESIVIR 100 MG in SODIUM CHLORIDE 250 ML IVPB SCH (14:18)
[2022-04-22 15:11] VITALS: BP 121/77; PULSE 84
== END 2022-04-22 17:09 | disposition home or self-care (01) | DRG 178 ==
LOC: JER 12:05 → JERBED 13:01 → J4S 23:22
PROVIDERS: ADMIT Internal Medicine; ATTEND Internal Medicine
PROC: XW033E5 Introduction of Remdesivir Anti-infective into Peripheral Vein, Percutaneous Approach, New Technology Group 5 (ICD-10-PCS; principal; 2022-04-19)
DX: U07.1 COVID-19 (principal); I42.0 Dilated cardiomyopathy; I48.19 Other persistent atrial fibrillation; E87.1 Hypo-osmolality and hyponatremia; I50.22 Chronic systolic (congestive) heart failure; E86.1 Hypovolemia; E86.0 Dehydration; R53.1 Weakness; I25.10 Atherosclerotic heart disease of native coronary artery without angina pectoris; R55 Syncope and collapse; M17.11 Unilateral primary osteoarthritis, right knee; R07.89 Other chest pain; R11.2 Nausea with vomiting, unspecified; R94.5 Abnormal results of liver function studies; E66.9 Obesity, unspecified; Z68.35 Body mass index [BMI] 35.0-35.9, adult; K76.0 Fatty (change of) liver, not elsewhere classified; R19.7 Diarrhea, unspecified; L27.0 Generalized skin eruption due to drugs and medicaments taken internally; T50.1X5A Adverse effect of loop [high-ceiling] diuretics, initial encounter; G47.33 Obstructive sleep apnea (adult) (pediatric); Z79.01 Long term (current) use of anticoagulants
CPT/HCPCS: 0241U-QW; 36415; 70450-TC; 71045-TC-FY; 76705-TC; 80048; 80053; 81003; 82550; 82962; 83735; 84100; 84484; 85025; 85610; 85730; 86140; 86704; 86705; 86803; 87086; 87340; 87517; 93005; 93010; 99285-25; C9399

== ENCOUNTER 2022-11-14 13:09 | Inpatient (IN) | payer BC, OTHER ==
[2022-11-14] MEDS ORDERED: SODIUM CHLORIDE 0.9% 500 ML INFUS.BAG IV ONE ×2 (13:55→17:33)
[2022-11-14 15:35] LABS: BASO % 0.9 % (0-2.0); EOS % 0.7 % (0-4.5); HEMATOCRIT 35.5 % (35.4-49); HEMOGLOBIN 12.2 GM/dL (11.7-16.9); LYMPH % 18.4 % (8-40); MCH 33.4 pg (25.7-33.7); MCHC 34.4 g/dl (32.0-35.9); MEAN CELL VOLUME 97.1 fl (80-96); MEAN PLT VOLUME 8.9 fl (7.5-11.1); MONO % 14.4 % (3.8-10.2); NEUT % 65.6 % (42.8-82.8); PLATELET COUNT 325 10^3/uL (134-434); RBC 3.65 M/mm3 (4.00-5.60); RDW 14.7 % (11.9-15.9); WHITE BLOOD COUNT 9.2 K/mm3 (4.0-10.0)
[2022-11-14 15:57] LABS: CHLORIDE 91 mmol/L (98-107); SODIUM 135 mmol/L (136-145)
[2022-11-14 15:59] LABS: ACTIVATED PTT 29.2 SECONDS (25.2-36.5); BLOOD UREA NITROGEN 8.6 mg/dL (7-18); CALCIUM 7.7 mg/dL (8.5-10.1); CO2 32 mmol/L (21-32); INR 1.43 (0.83-1.09); PROTHROMBIN TIME (PATIENT) 16.5 SEC (9.7-13.0)
[2022-11-14 16:00] LABS: ALBUMIN 2.4 g/dl (3.4-5.0); GLUCOSE,RANDOM 103 mg/dL (74-106); MAGNESIUM 1.3 mg/dL (1.8-2.4)
[2022-11-14 16:02] LABS: CREATININE 1.2 mg/dL (0.55-1.3); SGPT/ALT 19 U/L (13-61)
[2022-11-14 16:03] LABS: SGOT/AST 49 U/L (15-37)
[2022-11-14 16:04] LABS: BILIRUBIN,TOTAL 1.6 mg/dL (0.2-1); TOT PROT 5.8 g/dl (6.4-8.2)
[2022-11-14 16:05] LABS: ALK PHOS 38 U/L (45-117)
[2022-11-14 16:06] LABS: ANION GAP 13 MMOL/L (8-16)
[2022-11-14] MEDS ORDERED: ASPIRIN 81 MG CHEWABLE TABLETS PO ONE (16:07)
[2022-11-14] MEDS ORDERED: POTASSIUM CHLORIDE TABS 20 MEQ TABLET.ER (FP) PO ONE ×2 (16:08→16:18)
[2022-11-14] MEDS ORDERED: ASPIRIN 81 MG CHEWABLE TABLETS ONE (16:17)
[2022-11-14 16:19] LABS: PHOSPHOROUS 2.5 mg/dL (2.5-4.9)
[2022-11-14] MEDS ORDERED: KCL 10 MEQ IVPB 30 MEQ/300 ML INFUS.BAG IVPB ONE (16:38)
[2022-11-14] MEDS: KCL 10 MEQ IVPB 10 MEQ/100 ML INFUS.BAG IVPB SCH ×3 (16:46→18:49)
[2022-11-14 16:56] LABS: LACTIC ACID 3.1 mmol/L (0.4-2.0)
[2022-11-14] MEDS ORDERED: MAGNESIUM 1GM/D5W - 1 GM/100 ML IVPB IVPB ONE ×2 (19:58→21:09)
[2022-11-14 22:29] LABS: PH,URINE 6.5 (5.0-8.0); URINE APPEARANCE CLEAR; URINE BILIRUBIN NEGATIVE (NEGATIVE); URINE COLOR YELLOW; URINE GLUCOSE (UA) NEGATIVE (NEGATIVE); URINE KETONE NEGATIVE (NEGATIVE); URINE LEUK ESTERASE NEGATIVE (NEGATIVE); URINE NITRITE NEGATIVE (NEGATIVE); URINE PROTEIN NEGATIVE (NEGATIVE)
[2022-11-14 23:16] LABS: CALCIUM 7.4 mg/dL (8.5-10.1)
[2022-11-14 23:17] LABS: BLOOD UREA NITROGEN 8.8 mg/dL (7-18); MAGNESIUM 1.8 mg/dL (1.8-2.4)
[2022-11-14 23:20] LABS: CREATININE 0.9 mg/dL (0.55-1.3)
[2022-11-15] MEDS ORDERED: POTASSIUM CHLORIDE TABS 20 MEQ TABLET.ER (FP) PO ONE ×3 (01:12→08:33)
[2022-11-15 07:56] LABS: BASO % 0.6 % (0-2.0); EOS % 0.9 % (0-4.5); HEMATOCRIT 35.2 % (35.4-49); LYMPH % 9.2 % (8-40); MCH 33.3 pg (25.7-33.7); MCHC 34.1 g/dl (32.0-35.9); MEAN CELL VOLUME 97.5 fl (80-96); MEAN PLT VOLUME 8.8 fl (7.5-11.1); MONO % 3.1 % (3.8-10.2); NEUT % 86.2 % (42.8-82.8); PLATELET COUNT 292 10^3/uL (134-434); RBC 3.61 M/mm3 (4.00-5.60); RDW 14.7 % (11.9-15.9); WHITE BLOOD COUNT 10.6 K/mm3 (4.0-10.0)
[2022-11-15 08:29] LABS: CALCIUM 7.4 mg/dL (8.5-10.1)
[2022-11-15 08:30] LABS: ALBUMIN 2.4 g/dl (3.4-5.0); BLOOD UREA NITROGEN 7.8 mg/dL (7-18); MAGNESIUM 1.6 mg/dL (1.8-2.4)
[2022-11-15 08:33] LABS: CREATININE 0.8 mg/dL (0.55-1.3); PHOSPHOROUS 2.3 mg/dL (2.5-4.9)
[2022-11-15 08:35] LABS: BILIRUBIN,TOTAL 1.5 mg/dL (0.2-1); TOT PROT 5.6 g/dl (6.4-8.2)
[2022-11-15] MEDS ORDERED: MAGNESIUM SULF 50% (8.12 MEQ/2 ML-1 GM VIAL) IVPB ONE (08:35)
[2022-11-15] MEDS ORDERED: POTASSIUM PHOSPHATE 15 MM in SODIUM CHLORIDE 250 ML IVPB ONE (08:37)
[2022-11-15] MEDS ORDERED: SODIUM CHLORIDE 0.9% 500 ML INFUS.BAG IV ONE (09:00)
[2022-11-15] MEDS ORDERED: SODIUM CHLORIDE 250 ML IV STA (09:03)
[2022-11-15] MEDS: SODIUM CHLORIDE 1,000 ML IV SCH (09:26)
[2022-11-15] MEDS: CARVEDILOL 3.125 MG TABLET (FP) PO SCH ×2 (09:26→22:22)
[2022-11-15] MEDS ORDERED: ENOXAPARIN NA (PORCINE) 40 MG/0.4 ML DISP.SYRIN SQ SCH (10:00)
[2022-11-15] MEDS ORDERED: APIXABAN 5 MG TABLET PO SCH (10:00)
[2022-11-15] MEDS: KCL 10 MEQ IVPB 10 MEQ/100 ML INFUS.BAG IVPB SCH ×3 (10:00→12:24)
[2022-11-15] MEDS: ENOXAPARIN NA (PORCINE) 100 MG/1 ML DISP.SYRIN SQ SCH (22:22)
[2022-11-16] MEDS ORDERED: LORazepam 2 MG/ML SDV VIAL IVPUSH SCH (08:18)
[2022-11-16 08:28] LABS: BASO % 1.2 % (0-2.0); EOS % 3.1 % (0-4.5); HEMATOCRIT 34.8 % (35.4-49); HEMOGLOBIN 11.9 GM/dL (11.7-16.9); LYMPH % 18.2 % (8-40); MCH 33.4 pg (25.7-33.7); MCHC 34.1 g/dl (32.0-35.9); MEAN CELL VOLUME 97.9 fl (80-96); MEAN PLT VOLUME 9.1 fl (7.5-11.1); MONO % 5.3 % (3.8-10.2); NEUT % 72.2 % (42.8-82.8); PLATELET COUNT 290 10^3/uL (134-434); RBC 3.55 M/mm3 (4.00-5.60); RDW 14.4 % (11.9-15.9); WHITE BLOOD COUNT 6.5 K/mm3 (4.0-10.0)
[2022-11-16] MEDS ORDERED: SODIUM CHLORIDE 500 ML IV STA (08:41)
[2022-11-16 08:53] LABS: CALCIUM 7.5 mg/dL (8.5-10.1)
[2022-11-16 08:54] LABS: ALBUMIN 2.2 g/dl (3.4-5.0); BLOOD UREA NITROGEN 3.7 mg/dL (7-18); MAGNESIUM 1.8 mg/dL (1.8-2.4)
[2022-11-16 08:56] LABS: CREATININE 0.7 mg/dL (0.55-1.3); PHOSPHOROUS 3.1 mg/dL (2.5-4.9)
[2022-11-16 08:57] LABS: BILIRUBIN,TOTAL 1.2 mg/dL (0.2-1)
[2022-11-16 08:58] LABS: TOT PROT 5.3 g/dl (6.4-8.2)
[2022-11-16] MEDS ORDERED: MAGNESIUM SULF 50% (8.12 MEQ/2 ML-1 GM VIAL) IVPB ONE (09:45)
[2022-11-16] MEDS: ENOXAPARIN NA (PORCINE) 100 MG/1 ML DISP.SYRIN SQ SCH ×2 (09:57→21:29)
[2022-11-16] MEDS: KCL 10 MEQ IVPB 10 MEQ/100 ML INFUS.BAG IVPB SCH ×2 (09:59→15:30)
[2022-11-16] MEDS: SODIUM CHLORIDE 1,000 ML IV SCH (10:04)
[2022-11-16] MEDS: CARVEDILOL 3.125 MG TABLET (FP) PO SCH (10:05)
[2022-11-16] MEDS: METOPROLOL TARTRATE 25 MG TABLET (FP) PO SCH (21:28)
[2022-11-17] MEDS ORDERED: LORazepam 2 MG/ML SDV VIAL IVPUSH SCH ×2 (06:00→21:00)
[2022-11-17 08:39] LABS: BASO % 1.4 % (0-2.0); EOS % 4.3 % (0-4.5); HEMATOCRIT 30.3 % (35.4-49); HEMOGLOBIN 10.4 GM/dL (11.7-16.9); LYMPH % 23.6 % (8-40); MCH 33.8 pg (25.7-33.7); MCHC 34.2 g/dl (32.0-35.9); MEAN CELL VOLUME 98.9 fl (80-96); MEAN PLT VOLUME 9.1 fl (7.5-11.1); MONO % 7.6 % (3.8-10.2); NEUT % 63.1 % (42.8-82.8); PLATELET COUNT 218 10^3/uL (134-434); RBC 3.07 M/mm3 (4.00-5.60); RDW 14.3 % (11.9-15.9); WHITE BLOOD COUNT 5.2 K/mm3 (4.0-10.0)
[2022-11-17 08:49] LABS: CHLORIDE 102 mmol/L (98-107); SODIUM 137 mmol/L (136-145)
[2022-11-17 08:54] LABS: CALCIUM 7.9 mg/dL (8.5-10.1)
[2022-11-17 08:55] LABS: ALBUMIN 2.2 g/dl (3.4-5.0); ANION GAP 6 MMOL/L (8-16); CO2 30 mmol/L (21-32); GLUCOSE,RANDOM 82 mg/dL (74-106)
[2022-11-17 08:56] LABS: SGPT/ALT 17 U/L (13-61)
[2022-11-17 08:57] LABS: PHOSPHOROUS 2.9 mg/dL (2.5-4.9)
[2022-11-17 08:58] LABS: CREATININE 0.7 mg/dL (0.55-1.3); SGOT/AST 36 U/L (15-37); TOT PROT 5.1 g/dl (6.4-8.2)
[2022-11-17 08:59] LABS: ALK PHOS 31 U/L (45-117)
[2022-11-17 09:10] LABS: BLOOD UREA NITROGEN 2.6 mg/dL (7-18)
[2022-11-17] MEDS: ENOXAPARIN NA (PORCINE) 100 MG/1 ML DISP.SYRIN SQ SCH ×2 (10:16→21:11)
[2022-11-17] MEDS: METOPROLOL TARTRATE 25 MG TABLET (FP) PO SCH ×2 (10:16→21:10)
[2022-11-17] MEDS: SODIUM CHLORIDE 1,000 ML IV SCH ×2 (10:20→20:15)
[2022-11-17] MEDS: VANCOMYCIN 250 MG/5 ML ORAL SOLUTION PO SCH ×2 (12:43→17:13)
[2022-11-17 19:09] LABS: GLIADIN ANTIBODY IGA 5 units (0-19); GLIADIN ANTIBODY IGG 3 units (0-19); TRANSGLUTAMINASE IGG 12 U/mL (0-5)
[2022-11-18] MEDS: VANCOMYCIN 250 MG/5 ML ORAL SOLUTION PO SCH ×5 (00:45→23:15)
[2022-11-18] MEDS: ENOXAPARIN NA (PORCINE) 100 MG/1 ML DISP.SYRIN SQ SCH ×2 (10:46→21:22)
[2022-11-18] MEDS: SACUBITRIL/VALSARTAN 24 MG-26 MG TABLET PO SCH ×2 (10:47→21:23)
[2022-11-18] MEDS: CARVEDILOL 6.25 MG TABLET (FP) PO SCH ×2 (10:47→21:23)
[2022-11-18 12:52] LABS: CHLORIDE 101 mmol/L (98-107); SODIUM 135 mmol/L (136-145)
[2022-11-18 12:59] LABS: CALCIUM 8.1 mg/dL (8.5-10.1)
[2022-11-18 13:00] LABS: ANION GAP 8 MMOL/L (8-16); CO2 25 mmol/L (21-32); GLUCOSE,RANDOM 117 mg/dL (74-106)
[2022-11-18 13:03] LABS: BLOOD UREA NITROGEN 1.9 mg/dL (7-18); CREATININE 0.8 mg/dL (0.55-1.3)
[2022-11-19] MEDS: VANCOMYCIN 250 MG/5 ML ORAL SOLUTION PO SCH ×4 (05:54→23:21)
[2022-11-19 09:12] LABS: BASO % 1.2 % (0-2.0); EOS % 4.8 % (0-4.5); HEMATOCRIT 33.4 % (35.4-49); HEMOGLOBIN 11.4 GM/dL (11.7-16.9); LYMPH % 27.1 % (8-40); MCH 33.6 pg (25.7-33.7); MCHC 34.3 g/dl (32.0-35.9); MEAN CELL VOLUME 98.1 fl (80-96); MEAN PLT VOLUME 8.5 fl (7.5-11.1); MONO % 8.1 % (3.8-10.2); NEUT % 58.8 % (42.8-82.8); PLATELET COUNT 247 10^3/uL (134-434); RDW 14.7 % (11.9-15.9); WHITE BLOOD COUNT 5.3 K/mm3 (4.0-10.0)
[2022-11-19 09:24] LABS: CHLORIDE 104 mmol/L (98-107); SODIUM 138 mmol/L (136-145)
[2022-11-19 09:30] LABS: ALBUMIN 2.3 g/dl (3.4-5.0); ANION GAP 9 MMOL/L (8-16); CALCIUM 8.1 mg/dL (8.5-10.1); CO2 25 mmol/L (21-32); GLUCOSE,RANDOM 105 mg/dL (74-106)
[2022-11-19 09:33] LABS: CREATININE 0.7 mg/dL (0.55-1.3); SGOT/AST 35 U/L (15-37); SGPT/ALT 20 U/L (13-61)
[2022-11-19 09:34] LABS: BILIRUBIN,TOTAL 0.8 mg/dL (0.2-1)
[2022-11-19 09:35] LABS: TOT PROT 5.5 g/dl (6.4-8.2)
[2022-11-19 09:36] LABS: ALK PHOS 32 U/L (45-117)
[2022-11-19 10:01] LABS: BLOOD UREA NITROGEN 2.3 mg/dL (7-18)
[2022-11-19] MEDS: SACUBITRIL/VALSARTAN 24 MG-26 MG TABLET PO SCH ×2 (10:59→20:59)
[2022-11-19] MEDS: ENOXAPARIN NA (PORCINE) 100 MG/1 ML DISP.SYRIN SQ SCH ×2 (10:59→20:59)
[2022-11-19] MEDS: CARVEDILOL 6.25 MG TABLET (FP) PO SCH ×2 (11:00→20:59)
[2022-11-19] MEDS: LACTOBACILLUS ACIDOPHILUS 1 TABLET PO SCH (11:00)
[2022-11-19 11:40] VITALS: BMI 31.6
[2022-11-19 12:17] LABS: MAGNESIUM 1.5 mg/dL (1.8-2.4)
[2022-11-19] MEDS ORDERED: POTASSIUM CHLORIDE TABS 20 MEQ TABLET.ER (FP) PO ONE (12:30)
[2022-11-19] MEDS: MAGNESIUM 2GM/50ML STERILE WATER IVPB IVPB ONE (17:44)
[2022-11-19] MEDS: BANATROL PLUS POWDER PACKET PO SCH (20:59)
[2022-11-20] MEDS: VANCOMYCIN 250 MG/5 ML ORAL SOLUTION PO SCH ×4 (05:51→23:08)
[2022-11-20] MEDS: BANATROL PLUS POWDER PACKET PO SCH ×3 (05:51→21:05)
[2022-11-20] MEDS ORDERED: diphenhydrAMINE HCL 25 MG CAPSULE (FP) PO ONE (06:02)
[2022-11-20] MEDS ORDERED: MAGNESIUM SULF 50% (8.12 MEQ/2 ML-1 GM VIAL) IVPB ONE ×3 (09:09→14:12)
[2022-11-20 09:28] LABS: BASO % 1.1 % (0-2.0); EOS % 4.5 % (0-4.5); HEMATOCRIT 34.1 % (35.4-49); HEMOGLOBIN 11.6 GM/dL (11.7-16.9); LYMPH % 30.3 % (8-40); MCH 33.5 pg (25.7-33.7); MCHC 34.1 g/dl (32.0-35.9); MEAN CELL VOLUME 98.5 fl (80-96); MEAN PLT VOLUME 9.1 fl (7.5-11.1); MONO % 8.1 % (3.8-10.2); PLATELET COUNT 278 10^3/uL (134-434); RBC 3.46 M/mm3 (4.00-5.60); RDW 14.4 % (11.9-15.9); WHITE BLOOD COUNT 5.9 K/mm3 (4.0-10.0)
[2022-11-20 09:44] LABS: CHLORIDE 104 mmol/L (98-107); SODIUM 138 mmol/L (136-145)
[2022-11-20 09:48] LABS: CALCIUM 8.2 mg/dL (8.5-10.1)
[2022-11-20 09:49] LABS: ALBUMIN 2.4 g/dl (3.4-5.0); ANION GAP 12 MMOL/L (8-16); CO2 23 mmol/L (21-32); GLUCOSE,RANDOM 90 mg/dL (74-106); MAGNESIUM 1.7 mg/dL (1.8-2.4)
[2022-11-20 09:52] LABS: CREATININE 0.8 mg/dL (0.55-1.3); SGOT/AST 40 U/L (15-37); SGPT/ALT 22 U/L (13-61)
[2022-11-20 09:53] LABS: BILIRUBIN,TOTAL 0.8 mg/dL (0.2-1); TOT PROT 5.5 g/dl (6.4-8.2)
[2022-11-20 09:55] LABS: ALK PHOS 33 U/L (45-117)
[2022-11-20] MEDS ORDERED: POTASSIUM CHLORIDE 20 MEQ in AMINO ACIDS 4.25%/D5W 1,000 ML IV SCH (10:00)
[2022-11-20] MEDS: SACUBITRIL/VALSARTAN 24 MG-26 MG TABLET PO SCH ×2 (10:31→21:06)
[2022-11-20] MEDS: LACTOBACILLUS ACIDOPHILUS 1 TABLET PO SCH (10:31)
[2022-11-20] MEDS: CARVEDILOL 6.25 MG TABLET (FP) PO SCH ×2 (10:31→21:05)
[2022-11-20] MEDS: ENOXAPARIN NA (PORCINE) 100 MG/1 ML DISP.SYRIN SQ SCH ×2 (10:32→21:05)
[2022-11-20] MEDS: TRIMETHOBENZAMIDE HCL 200MG/2ML INJ IM SCH (16:54)
[2022-11-20] MEDS: ONDANSETRON 8 MG TABLET (FP) PO SCH ×2 (17:27→21:06)
[2022-11-20] MEDS: MAGNESIUM 2GM/50ML STERILE WATER IVPB IVPB ONE (17:52)
[2022-11-20] MEDS ORDERED: MAGNESIUM 1GM/D5W 100ML - 100 ML IVPB IVPB ONE ×2 (18:00)
[2022-11-21] MEDS: BANATROL PLUS POWDER PACKET PO SCH ×3 (06:01→22:21)
[2022-11-21] MEDS: VANCOMYCIN 250 MG/5 ML ORAL SOLUTION PO SCH ×4 (06:01→23:06)
[2022-11-21] MEDS: ONDANSETRON 8 MG TABLET (FP) PO SCH ×3 (06:04→22:23)
[2022-11-21] MEDS: TRIMETHOBENZAMIDE HCL 200MG/2ML INJ IM SCH ×3 (06:15→17:31)
[2022-11-21] MEDS: CARVEDILOL 6.25 MG TABLET (FP) PO SCH ×2 (10:00→22:22)
[2022-11-21] MEDS: SACUBITRIL/VALSARTAN 24 MG-26 MG TABLET PO SCH ×2 (10:00→23:05)
[2022-11-21] MEDS: LACTOBACILLUS ACIDOPHILUS 1 TABLET PO SCH (10:01)
[2022-11-21] MEDS: ENOXAPARIN NA (PORCINE) 100 MG/1 ML DISP.SYRIN SQ SCH ×2 (10:01→22:22)
[2022-11-21] MEDS ORDERED: ONDANSETRON 4 MG TABLET PO ONE (21:36)
[2022-11-22] MEDS ORDERED: ONDANSETRON 4 MG TABLET PO ONE ×2 (05:20→13:01)
[2022-11-22] MEDS: BANATROL PLUS POWDER PACKET PO SCH ×3 (06:02→22:12)
[2022-11-22] MEDS: ONDANSETRON 8 MG TABLET (FP) PO SCH ×2 (06:02→13:08)
[2022-11-22] MEDS: VANCOMYCIN 250 MG/5 ML ORAL SOLUTION PO SCH ×3 (06:02→17:30)
[2022-11-22] MEDS: TRIMETHOBENZAMIDE HCL 200MG/2ML INJ IM SCH ×3 (06:59→17:20)
[2022-11-22 09:43] LABS: BASO % 1.2 % (0-2.0); EOS % 2.8 % (0-4.5); HEMATOCRIT 31.5 % (35.4-49); HEMOGLOBIN 10.9 GM/dL (11.7-16.9); LYMPH % 26.1 % (8-40); MCHC 34.7 g/dl (32.0-35.9); MEAN CELL VOLUME 98.2 fl (80-96); MEAN PLT VOLUME 8.4 fl (7.5-11.1); MONO % 9.2 % (3.8-10.2); NEUT % 60.7 % (42.8-82.8); PLATELET COUNT 242 10^3/uL (134-434); RBC 3.21 M/mm3 (4.00-5.60); RDW 14.7 % (11.9-15.9); WHITE BLOOD COUNT 5.8 K/mm3 (4.0-10.0)
[2022-11-22] MEDS: LACTOBACILLUS ACIDOPHILUS 1 TABLET PO SCH (09:48)
[2022-11-22] MEDS: SACUBITRIL/VALSARTAN 24 MG-26 MG TABLET PO SCH ×3 (09:49→22:11)
[2022-11-22] MEDS: ENOXAPARIN NA (PORCINE) 100 MG/1 ML DISP.SYRIN SQ SCH ×2 (09:49→22:12)
[2022-11-22] MEDS: CARVEDILOL 6.25 MG TABLET (FP) PO SCH ×2 (09:49→22:11)
[2022-11-22 10:20] LABS: BLOOD UREA NITROGEN 5.3 mg/dL (7-18); CALCIUM 8.3 mg/dL (8.5-10.1)
[2022-11-22 10:21] LABS: ALBUMIN 2.5 g/dl (3.4-5.0); MAGNESIUM 1.8 mg/dL (1.8-2.4)
[2022-11-22 10:24] LABS: CREATININE 0.8 mg/dL (0.55-1.3); PHOSPHOROUS 3.4 mg/dL (2.5-4.9)
[2022-11-22 10:25] LABS: BILIRUBIN,TOTAL 0.8 mg/dL (0.2-1); TOT PROT 5.4 g/dl (6.4-8.2)
[2022-11-22] MEDS: MULTIVITAMINS (DAILY MVI) TABLET (FP) PO SCH (13:08)
[2022-11-23] MEDS: VANCOMYCIN 250 MG/5 ML ORAL SOLUTION PO SCH ×4 (00:05→17:28)
[2022-11-23] MEDS: TRIMETHOBENZAMIDE HCL 200MG/2ML INJ IM SCH ×2 (06:19→11:05)
[2022-11-23] MEDS: BANATROL PLUS POWDER PACKET PO SCH ×3 (06:19→22:13)
[2022-11-23] MEDS: CARVEDILOL 6.25 MG TABLET (FP) PO SCH ×2 (09:27→22:13)
[2022-11-23] MEDS: MULTIVITAMINS (DAILY MVI) TABLET (FP) PO SCH (09:27)
[2022-11-23] MEDS: LACTOBACILLUS ACIDOPHILUS 1 TABLET PO SCH (09:27)
[2022-11-23] MEDS: SACUBITRIL/VALSARTAN 24 MG-26 MG TABLET PO SCH ×2 (09:27→22:13)
[2022-11-23] MEDS: ENOXAPARIN NA (PORCINE) 100 MG/1 ML DISP.SYRIN SQ SCH (09:27)
[2022-11-23] MEDS: diphenhydrAMINE HCL 25 MG CAPSULE (FP) PO PRN (09:58)
[2022-11-23 11:07] LABS: ALBUMIN 2.6 g/dl (3.4-5.0); CALCIUM 8.6 mg/dL (8.5-10.1)
[2022-11-23 11:08] LABS: BLOOD UREA NITROGEN 3.3 mg/dL (7-18); MAGNESIUM 1.8 mg/dL (1.8-2.4)
[2022-11-23 11:11] LABS: PHOSPHOROUS 3.2 mg/dL (2.5-4.9)
[2022-11-23 11:12] LABS: BILIRUBIN,TOTAL 0.7 mg/dL (0.2-1); CREATININE 0.9 mg/dL (0.55-1.3); TOT PROT 5.8 g/dl (6.4-8.2)
[2022-11-23] MEDS: MINERAL OIL/PET HY-PHL TOPICAL OINTMENT 454 GM JAR TP SCH ×2 (12:55→22:13)
[2022-11-23] MEDS: APIXABAN 5 MG TABLET PO SCH (22:13)
[2022-11-23] MEDS ORDERED: FUROSEMIDE 40 MG/4 ML INJECTABLE VIAL IVPUSH ONE (23:09)
[2022-11-24] MEDS: VANCOMYCIN 250 MG/5 ML ORAL SOLUTION PO SCH ×5 (00:23→23:14)
[2022-11-24] MEDS: diphenhydrAMINE HCL 25 MG CAPSULE (FP) PO PRN ×2 (01:42→21:43)
[2022-11-24] MEDS: BANATROL PLUS POWDER PACKET PO SCH ×3 (05:54→21:43)
[2022-11-24] MEDS: LACTOBACILLUS ACIDOPHILUS 1 TABLET PO SCH (09:54)
[2022-11-24] MEDS: APIXABAN 5 MG TABLET PO SCH ×2 (09:54→21:44)
[2022-11-24] MEDS: CARVEDILOL 6.25 MG TABLET (FP) PO SCH ×2 (09:54→21:44)
[2022-11-24] MEDS: MINERAL OIL/PET HY-PHL TOPICAL OINTMENT 454 GM JAR TP SCH ×2 (09:54→21:44)
[2022-11-24] MEDS: MULTIVITAMINS (DAILY MVI) TABLET (FP) PO SCH (09:54)
[2022-11-24 09:57] LABS: CHLORIDE 102 mmol/L (98-107); SODIUM 135 mmol/L (136-145)
[2022-11-24] MEDS: SACUBITRIL/VALSARTAN 24 MG-26 MG TABLET PO SCH ×2 (09:58→22:04)
[2022-11-24 10:00] LABS: ALBUMIN 2.7 g/dl (3.4-5.0); ANION GAP 5 MMOL/L (8-16); CALCIUM 8.5 mg/dL (8.5-10.1); CO2 29 mmol/L (21-32); GLUCOSE,RANDOM 97 mg/dL (74-106)
[2022-11-24 10:02] LABS: MAGNESIUM 1.8 mg/dL (1.8-2.4)
[2022-11-24 10:03] LABS: CREATININE 0.8 mg/dL (0.55-1.3); SGOT/AST 47 U/L (15-37)
[2022-11-24 10:04] LABS: PHOSPHOROUS 3.6 mg/dL (2.5-4.9); SGPT/ALT 24 U/L (13-61)
[2022-11-24 10:05] LABS: TOT PROT 5.9 g/dl (6.4-8.2)
[2022-11-24 10:06] LABS: ALK PHOS 36 U/L (45-117)
[2022-11-24 10:12] LABS: BILIRUBIN,TOTAL 0.8 mg/dL (0.2-1)
[2022-11-24 10:18] LABS: BLOOD UREA NITROGEN 2.1 mg/dL (7-18)
[2022-11-24] MEDS ORDERED: SODIUM CHLORIDE 500 ML IV STA (12:57)
[2022-11-24] MEDS: AMINO ACIDS 4.25%/D5W 1,000 ML IV SCH (14:50)
[2022-11-25] MEDS: BANATROL PLUS POWDER PACKET PO SCH ×3 (06:21→21:47)
[2022-11-25] MEDS: VANCOMYCIN 250 MG/5 ML ORAL SOLUTION PO SCH ×3 (06:22→17:09)
[2022-11-25 08:50] LABS: HEMATOCRIT 33.8 % (35.4-49); HEMOGLOBIN 11.5 GM/dL (11.7-16.9); MCH 33.4 pg (25.7-33.7); MEAN CELL VOLUME 98.4 fl (80-96); MEAN PLT VOLUME 8.6 fl (7.5-11.1); PLATELET COUNT 335 10^3/uL (134-434); RBC 3.43 M/mm3 (4.00-5.60); RDW 14.9 % (11.9-15.9); WHITE BLOOD COUNT 7.8 K/mm3 (4.0-10.0)
[2022-11-25 09:01] LABS: CHLORIDE 104 mmol/L (98-107); SODIUM 135 mmol/L (136-145)
[2022-11-25 09:05] LABS: CALCIUM 8.6 mg/dL (8.5-10.1)
[2022-11-25 09:06] LABS: ALBUMIN 2.7 g/dl (3.4-5.0); ANION GAP 5 MMOL/L (8-16); CO2 25 mmol/L (21-32); GLUCOSE,RANDOM 99 mg/dL (74-106); MAGNESIUM 1.9 mg/dL (1.8-2.4)
[2022-11-25 09:08] LABS: PHOSPHOROUS 3.6 mg/dL (2.5-4.9); SGPT/ALT 22 U/L (13-61)
[2022-11-25 09:09] LABS: CREATININE 0.7 mg/dL (0.55-1.3); SGOT/AST 40 U/L (15-37)
[2022-11-25 09:10] LABS: BILIRUBIN,TOTAL 0.6 mg/dL (0.2-1); TOT PROT 5.9 g/dl (6.4-8.2)
[2022-11-25 09:11] LABS: ALK PHOS 33 U/L (45-117)
[2022-11-25 09:13] LABS: BLOOD UREA NITROGEN 2.8 mg/dL (7-18)
[2022-11-25] MEDS: SACUBITRIL/VALSARTAN 24 MG-26 MG TABLET PO SCH ×2 (09:31→21:48)
[2022-11-25] MEDS: MULTIVITAMINS (DAILY MVI) TABLET (FP) PO SCH (09:31)
[2022-11-25] MEDS: CARVEDILOL 6.25 MG TABLET (FP) PO SCH ×2 (09:31→21:47)
[2022-11-25] MEDS: LACTOBACILLUS ACIDOPHILUS 1 TABLET PO SCH (09:31)
[2022-11-25] MEDS: APIXABAN 5 MG TABLET PO SCH ×2 (09:31→21:47)
[2022-11-25] MEDS: MINERAL OIL/PET HY-PHL TOPICAL OINTMENT 454 GM JAR TP SCH ×2 (09:32→21:58)
[2022-11-25] MEDS: AMINO ACIDS 4.25%/D5W 1,000 ML IV SCH ×2 (14:12→15:27)
[2022-11-25] MEDS: diphenhydrAMINE HCL 25 MG CAPSULE (FP) PO PRN (20:27)
[2022-11-26] MEDS: VANCOMYCIN 250 MG/5 ML ORAL SOLUTION PO SCH ×3 (00:50→11:41)
[2022-11-26] MEDS: diphenhydrAMINE HCL 25 MG CAPSULE (FP) PO PRN ×2 (02:14→22:11)
[2022-11-26] MEDS: BANATROL PLUS POWDER PACKET PO SCH ×3 (05:34→22:09)
[2022-11-26 10:25] LABS: BASO % 1.2 % (0-2.0); HEMATOCRIT 33.2 % (35.4-49); HEMOGLOBIN 11.2 GM/dL (11.7-16.9); LYMPH % 20.2 % (8-40); MCH 33.6 pg (25.7-33.7); MCHC 33.9 g/dl (32.0-35.9); MEAN CELL VOLUME 99.2 fl (80-96); MEAN PLT VOLUME 8.4 fl (7.5-11.1); MONO % 6.1 % (3.8-10.2); NEUT % 69.5 % (42.8-82.8); PLATELET COUNT 296 10^3/uL (134-434); RBC 3.34 M/mm3 (4.00-5.60); RDW 14.6 % (11.9-15.9); WHITE BLOOD COUNT 7.4 K/mm3 (4.0-10.0)
[2022-11-26] MEDS: CARVEDILOL 6.25 MG TABLET (FP) PO SCH ×2 (10:37→22:08)
[2022-11-26] MEDS: SACUBITRIL/VALSARTAN 24 MG-26 MG TABLET PO SCH ×2 (10:37→22:10)
[2022-11-26] MEDS: APIXABAN 5 MG TABLET PO SCH ×2 (10:37→22:08)
[2022-11-26] MEDS: MULTIVITAMINS (DAILY MVI) TABLET (FP) PO SCH (10:37)
[2022-11-26] MEDS: MINERAL OIL/PET HY-PHL TOPICAL OINTMENT 454 GM JAR TP SCH ×2 (10:37→23:17)
[2022-11-26] MEDS: LACTOBACILLUS ACIDOPHILUS 1 TABLET PO SCH (10:37)
[2022-11-26 11:09] LABS: ALBUMIN 2.6 g/dl (3.4-5.0); BLOOD UREA NITROGEN 4.5 mg/dL (7-18); CALCIUM 8.5 mg/dL (8.5-10.1); MAGNESIUM 1.8 mg/dL (1.8-2.4)
[2022-11-26 11:11] LABS: PHOSPHOROUS 2.9 mg/dL (2.5-4.9)
[2022-11-26 11:12] LABS: CREATININE 0.6 mg/dL (0.55-1.3)
[2022-11-26 11:13] LABS: BILIRUBIN,TOTAL 0.7 mg/dL (0.2-1); TOT PROT 5.7 g/dl (6.4-8.2)
[2022-11-26] MEDS ORDERED: POTASSIUM CHLORIDE TABS 20 MEQ TABLET.ER (FP) PO ONE (12:28)
[2022-11-26] MEDS: FIDAXOMICIN 200 MG TABLET PO SCH ×2 (14:14→22:10)
[2022-11-26] MEDS: AMINO ACIDS 4.25%/D5W 1,000 ML IV SCH (16:22)
[2022-11-27] MEDS: BANATROL PLUS POWDER PACKET PO SCH ×3 (06:37→23:07)
[2022-11-27] MEDS: LACTOBACILLUS ACIDOPHILUS 1 TABLET PO SCH (10:27)
[2022-11-27] MEDS: CARVEDILOL 6.25 MG TABLET (FP) PO SCH ×2 (10:27→23:06)
[2022-11-27] MEDS: APIXABAN 5 MG TABLET PO SCH ×2 (10:27→23:06)
[2022-11-27] MEDS: MULTIVITAMINS (DAILY MVI) TABLET (FP) PO SCH (10:28)
[2022-11-27] MEDS: SACUBITRIL/VALSARTAN 24 MG-26 MG TABLET PO SCH ×2 (10:28→23:17)
[2022-11-27] MEDS: MINERAL OIL/PET HY-PHL TOPICAL OINTMENT 454 GM JAR TP SCH ×2 (10:28→23:08)
[2022-11-27 11:02] LABS: BASO % 0.9 % (0-2.0); EOS % 3.6 % (0-4.5); HEMATOCRIT 33.4 % (35.4-49); HEMOGLOBIN 11.3 GM/dL (11.7-16.9); LYMPH % 20.8 % (8-40); MCH 32.9 pg (25.7-33.7); MCHC 33.7 g/dl (32.0-35.9); MEAN CELL VOLUME 97.6 fl (80-96); MEAN PLT VOLUME 8.3 fl (7.5-11.1); NEUT % 67.7 % (42.8-82.8); PLATELET COUNT 306 10^3/uL (134-434); RBC 3.42 M/mm3 (4.00-5.60); RDW 14.7 % (11.9-15.9); WHITE BLOOD COUNT 7.5 K/mm3 (4.0-10.0)
[2022-11-27 11:18] LABS: ALBUMIN 2.6 g/dl (3.4-5.0); BLOOD UREA NITROGEN 4.5 mg/dL (7-18); CALCIUM 8.4 mg/dL (8.5-10.1); MAGNESIUM 1.8 mg/dL (1.8-2.4)
[2022-11-27 11:21] LABS: CREATININE 0.6 mg/dL (0.55-1.3)
[2022-11-27 11:23] LABS: BILIRUBIN,TOTAL 0.6 mg/dL (0.2-1); TOT PROT 5.6 g/dl (6.4-8.2)
[2022-11-27] MEDS: FIDAXOMICIN 200 MG TABLET PO SCH ×2 (11:39→23:07)
[2022-11-27] MEDS: AMINO ACIDS 4.25%/D5W 1,000 ML IV SCH (19:32)
[2022-11-27] MEDS: diphenhydrAMINE HCL 25 MG CAPSULE (FP) PO PRN (23:17)
[2022-11-28] MEDS: BANATROL PLUS POWDER PACKET PO SCH ×3 (07:15→22:00)
[2022-11-28] MEDS: MULTIVITAMINS (DAILY MVI) TABLET (FP) PO SCH (09:35)
[2022-11-28] MEDS: SACUBITRIL/VALSARTAN 24 MG-26 MG TABLET PO SCH ×2 (09:35→21:59)
[2022-11-28] MEDS: APIXABAN 5 MG TABLET PO SCH ×2 (09:35→21:58)
[2022-11-28] MEDS: MINERAL OIL/PET HY-PHL TOPICAL OINTMENT 454 GM JAR TP SCH ×2 (09:35→22:11)
[2022-11-28] MEDS: CARVEDILOL 6.25 MG TABLET (FP) PO SCH ×2 (09:36→21:58)
[2022-11-28] MEDS: LACTOBACILLUS ACIDOPHILUS 1 TABLET PO SCH (09:36)
[2022-11-28 10:08] LABS: BASO % 1.1 % (0-2.0); EOS % 3.6 % (0-4.5); HEMATOCRIT 35.3 % (35.4-49); HEMOGLOBIN 11.9 GM/dL (11.7-16.9); LYMPH % 20.2 % (8-40); MCH 33.2 pg (25.7-33.7); MCHC 33.6 g/dl (32.0-35.9); MEAN CELL VOLUME 98.7 fl (80-96); MEAN PLT VOLUME 8.5 fl (7.5-11.1); MONO % 6.2 % (3.8-10.2); NEUT % 68.9 % (42.8-82.8); PLATELET COUNT 359 10^3/uL (134-434); RBC 3.58 M/mm3 (4.00-5.60); WHITE BLOOD COUNT 9.1 K/mm3 (4.0-10.0)
[2022-11-28] MEDS: FIDAXOMICIN 200 MG TABLET PO SCH ×2 (10:10→21:59)
[2022-11-28 10:23] LABS: CALCIUM 8.8 mg/dL (8.5-10.1)
[2022-11-28 10:24] LABS: ALBUMIN 2.9 g/dl (3.4-5.0); BLOOD UREA NITROGEN 6.1 mg/dL (7-18)
[2022-11-28 10:27] LABS: CREATININE 0.7 mg/dL (0.55-1.3); PHOSPHOROUS 3.5 mg/dL (2.5-4.9)
[2022-11-28 10:28] LABS: BILIRUBIN,TOTAL 0.6 mg/dL (0.2-1); TOT PROT 6.1 g/dl (6.4-8.2)
[2022-11-28] MEDS: AMINO ACIDS 4.25%/D5W 1,000 ML IV SCH (13:43)
[2022-11-28 14:46] VITALS: RESP 18
[2022-11-28] MEDS ORDERED: FUROSEMIDE 40 MG/4 ML INJECTABLE VIAL IVPUSH ONE (15:04)
[2022-11-28 15:09] LABS: FATS, NEUTRAL Normal (.)
[2022-11-28] MEDS: diphenhydrAMINE HCL 25 MG CAPSULE (FP) PO PRN (22:00)
[2022-11-29 06:36] VITALS: BP 113/69; PULSE 86; TEMP 98.2
[2022-11-29] MEDS: BANATROL PLUS POWDER PACKET PO SCH ×2 (07:10→13:21)
[2022-11-29 09:28] LABS: BASO % 1.3 % (0-2.0); EOS % 4.2 % (0-4.5); HEMATOCRIT 36.6 % (35.4-49); HEMOGLOBIN 12.4 GM/dL (11.7-16.9); LYMPH % 24.9 % (8-40); MCH 33.1 pg (25.7-33.7); MCHC 33.8 g/dl (32.0-35.9); MEAN CELL VOLUME 98.1 fl (80-96); MEAN PLT VOLUME 8.2 fl (7.5-11.1); MONO % 7.3 % (3.8-10.2); NEUT % 62.3 % (42.8-82.8); PLATELET COUNT 394 10^3/uL (134-434); RBC 3.73 M/mm3 (4.00-5.60); RDW 14.5 % (11.9-15.9); WHITE BLOOD COUNT 8.3 K/mm3 (4.0-10.0)
[2022-11-29] MEDS: APIXABAN 5 MG TABLET PO SCH (09:36)
[2022-11-29] MEDS: CARVEDILOL 6.25 MG TABLET (FP) PO SCH (09:36)
[2022-11-29] MEDS: LACTOBACILLUS ACIDOPHILUS 1 TABLET PO SCH (09:37)
[2022-11-29] MEDS: MINERAL OIL/PET HY-PHL TOPICAL OINTMENT 454 GM JAR TP SCH (09:37)
[2022-11-29] MEDS: SACUBITRIL/VALSARTAN 24 MG-26 MG TABLET PO SCH (09:37)
[2022-11-29] MEDS: MULTIVITAMINS (DAILY MVI) TABLET (FP) PO SCH (09:37)
[2022-11-29] MEDS ORDERED: SPIRONOLACTONE 25 MG TABLET PO SCH (10:00)
[2022-11-29 10:04] LABS: CALCIUM 8.8 mg/dL (8.5-10.1)
[2022-11-29 10:05] LABS: ALBUMIN 3.1 g/dl (3.4-5.0); MAGNESIUM 2.1 mg/dL (1.8-2.4)
[2022-11-29 10:06] LABS: BLOOD UREA NITROGEN 6.9 mg/dL (7-18)
[2022-11-29 10:08] LABS: CREATININE 0.7 mg/dL (0.55-1.3); PHOSPHOROUS 3.7 mg/dL (2.5-4.9)
[2022-11-29 10:10] LABS: BILIRUBIN,TOTAL 0.7 mg/dL (0.2-1); TOT PROT 6.4 g/dl (6.4-8.2)
[2022-11-29] MEDS: FIDAXOMICIN 200 MG TABLET PO SCH (10:28)
[2022-11-29] MEDS ORDERED: FUROSEMIDE 40 MG/4 ML INJECTABLE VIAL IVPUSH ONE (11:15)
[2022-11-29] MEDS ORDERED: FUROSEMIDE 40 MG TABLET (FP) PO ONE (12:16)
== END 2022-11-29 14:49 | disposition home or self-care (01) | DRG 372 ==
LOC: JER 13:09 → JERBED 21:44 → J4W 11-15 05:10 → J4S 11-17 13:48 → J8W 11-21 16:20
PROVIDERS: ADMIT Internal Medicine; ATTEND Internal Medicine
DX: A04.72 Enterocolitis due to Clostridium difficile, not specified as recurrent (principal); E46 Unspecified protein-calorie malnutrition; E87.1 Hypo-osmolality and hyponatremia; E87.20 Acidosis, unspecified; I42.8 Other cardiomyopathies; I48.19 Other persistent atrial fibrillation; I50.22 Chronic systolic (congestive) heart failure; G47.30 Sleep apnea, unspecified; I25.10 Atherosclerotic heart disease of native coronary artery without angina pectoris; E87.6 Hypokalemia; E86.1 Hypovolemia; I11.0 Hypertensive heart disease with heart failure; K76.0 Fatty (change of) liver, not elsewhere classified; R94.5 Abnormal results of liver function studies; R63.4 Abnormal weight loss; Z68.31 Body mass index [BMI] 31.0-31.9, adult; D72.829 Elevated white blood cell count, unspecified; L29.9 Pruritus, unspecified; F10.10 Alcohol abuse, uncomplicated; E83.42 Hypomagnesemia; D64.9 Anemia, unspecified; I95.9 Hypotension, unspecified; E83.39 Other disorders of phosphorus metabolism
CPT/HCPCS: 0241U-QW; 36415; 71045-TC-FY; 74177-TC; 74183-TC; 80048; 80053; 81003; 82550; 82553; 82607; 82705; 82710; 82728; 82746; 82784; 82962; 83516; 83540; 83550; 83605; 83631; 83735; 84100; 84439; 84443; 84484; 85025; 85027; 85610; 85730; 86140; 86704; 86705; 86708; 86803; 86850; 86900; 86901; 87040; 87045; 87046; 87086; 87209; 87324; 87449; 87517; 93005; 93010; 93306-TC; 93970-TC; 99285-25; Q9967

== ENCOUNTER 2023-10-16 04:44 | Day surgery (SDC) | payer BC, OTHER ==
[2023-10-13 13:58] VITALS: BMI 33.2
[2023-10-16 11:39] VITALS: TEMP 98
[2023-10-16 12:25] VITALS: BP 109/85; PULSE 74; RESP 16
== END 2023-10-16 12:26 | disposition home or self-care (01) ==
LOC: JASU-ENDO 04:44
PROVIDERS: ATTEND Internal Medicine Gastroenterology
PROC: 0DBP8ZX Excision of Rectum, Via Natural or Artificial Opening Endoscopic, Diagnostic (ICD-10-PCS; 2023-10-16)
PROC: 0DB98ZX Excision of Duodenum, Via Natural or Artificial Opening Endoscopic, Diagnostic (ICD-10-PCS; 2023-10-16)
PROC: 0DB68ZX Excision of Stomach, Via Natural or Artificial Opening Endoscopic, Diagnostic (ICD-10-PCS; 2023-10-16)
PROC: 0DB48ZX Excision of Esophagogastric Junction, Via Natural or Artificial Opening Endoscopic, Diagnostic (ICD-10-PCS; 2023-10-16)
PROC: 0DBM8ZX Excision of Descending Colon, Via Natural or Artificial Opening Endoscopic, Diagnostic (ICD-10-PCS; principal; 2023-10-16 11:00)
DX: Z12.11 Encounter for screening for malignant neoplasm of colon (principal); D12.4 Benign neoplasm of descending colon; D12.8 Benign neoplasm of rectum; K57.30 Diverticulosis of large intestine without perforation or abscess without bleeding; K29.50 Unspecified chronic gastritis without bleeding; K44.9 Diaphragmatic hernia without obstruction or gangrene; K22.2 Esophageal obstruction; K21.00 Gastro-esophageal reflux disease with esophagitis, without bleeding
CPT/HCPCS: 88305-TC; 88342-TC